=== PATIENT | female | born 1960 | race Caucasian/White ===

== ENCOUNTER → 2020-07-01 09:47 | Outpatient (BNVA) | payer BC, SELFPAY | PROVIDERS: PCP Internal Medicine; Visit Provider Hospitalist ==

== ENCOUNTER → 2020-08-05 09:53 | Outpatient (BNVA) | payer BC, SELFPAY | PROVIDERS: PCP Internal Medicine; Visit Provider Internal Medicine Cardiovascular Disease ==

== ENCOUNTER → 2020-08-19 07:42 | Outpatient (REF) | payer BC, SELFPAY ==
--- NOTE | ~2020-08-19 | NM_ITS ---
Myocardial perfusion study Indication: Shortness of breath and chest pain to evaluate for myocardial ischemia Technique: The patient was brought in for a Lexiscan perfusion study on 08/19/2020. Patient performed low-level exercise and was injected 0.4 mg of Lexiscan intravenously. Within a minute of injection, 35 mCi of sestamibi was given intravenously. Images were obtained using the SPECT gamma camera interlaced with the gating device. Images were obtained in supine position. Resting perfusion study was performed on 08/22/2020. Patient was administered 35 mCi of sestamibi intravenously at rest. Images were then obtained in supine position. Images obtained with and without CT attenuation. Total DLP 97 mGy-cm. Images were processed with the software and compared side to side in short axis, horizontal long axis and vertical long axis views. Findings: The stress perfusion study showed non attenuated images show minimal thinning and reduction uptake in the distal anterior and anterolateral wall of the LV myocardium. Remainder of the LV myocardium is normally perfused. Attenuation corrected images show normal uptake of radiotracer in all segments of LV myocardium. The gated study shows normal LV systolic function with calculated LVEF of 66%. LV cavity is normal in size. The gated study shows normal systolic wall thickening and contraction of segments. Resting study shows no change in perfusion pattern compared to stress perfusion study. Gating at rest reveals normal systolic wall motion with visually estimated ejection fraction at greater than 60%. The findings are consistent with normal myocardial perfusion. NM/NM tin perf SPECT rest & str Impression: 1. Myocardial perfusion imaging study shows normal myocardial perfusion 2. Gated LVEF is 66% 3. Transient ischemic dilatation not present Is nondiagnostic for ischemia
--- NOTE | 2020-08-19 07:49 | CA_ITS ---
Acquisition Time: 2020-08-19 08:15:25 Total Exercise Time: 00:02:00 Test Indications: Abnormal ECG Medications: Protocol: LEXISCAN Max HR: 091 BPM 56% of Pred: 160 BPM Max BP: 120/080 mmHG Max Work Load: 1.0 METS Pharmacological stress test using Lexiscan while sitting. Pt c/o chest pressure 10/10 after injection. Aminophyline used 75 mg IV to reversed the sx. EKG with no arrhythmias, non-diagnostic for ischemia. Nuclear images to follow. Normotensive response to test. Test reviewed with Dr. Monterroso. Referred By: Michael Zuñiga Overread By: Gillian Virk NP
== END ==
LOC: HO.CARD 07:42
PROVIDERS: Visit Provider Internal Medicine Cardiovascular Disease
DX: R07.89 Other chest pain (principal); R00.2 Palpitations; J44.9 Chronic obstructive pulmonary disease, unspecified; J96.10 Chronic respiratory failure, unspecified whether with hypoxia or hypercapnia; J98.4 Other disorders of lung
CPT/HCPCS: 78452; 93017; A9500; J0280; J2785

== ENCOUNTER → 2020-11-11 11:22 | Outpatient (BNVA) | payer OTHER, SELFPAY | PROVIDERS: PCP Internal Medicine; Visit Provider Hospitalist ==

== ENCOUNTER → 2020-11-30 07:25 | Outpatient (REF) | payer OTHER, SELFPAY ==
--- NOTE | 2020-11-30 07:28 | CA_ITS ---
Transthoracic Echocardiogram Patient (Last, First, Middle): Tricia Golden, Gender: Female Date of : 1960 Age: 60 Procedure Date: 11/30/2020 Procedure Type: Transthoracic Echocardiogram Location: OP Height: 157.48 cm Weight: 86.18 kg BSA: 1.87 m2 Heart Rate: bpm BP: 138 / 70 mmHg [employer] Technician: Referring MD: Michael Zuñiga MD Symptoms: R06.02 - Shortness of breath Study Quality: Fair ECG Rhythm: Sinus Conclusions: - The left ventricular systolic function is normal. The visually estimated ejection fraction is between 60-65%. - There is moderately increased left ventricular wall thickness. - No obvious valvular pathology seen on this study. - Top normal ascending aortic size (3.8cm). Findings Left Ventricle Normal left ventricular cavity size. There is moderately increased left ventricular wall thickness. The left ventricular systolic function is normal. The visually estimated ejection fraction is between 60-65%. There is no evidence of regional wall motion abnormalities. E/E prime ratio is between 8 and 15 consistent with indeterminate filling pressures. Evidence suggests grade I (mild) diastolic dysfunction. Right Ventricle Normal right ventricular cavity size and systolic function. Atria The left atrium is mildly dilated. The right atrium is normal in size. Aortic Valve The aortic valve was not well visualized. There is no aortic valve stenosis. There is no aortic valve regurgitation. Mitral Valve The mitral valve appears normal. There is trace mitral valve regurgitation. There is no mitral valve stenosis. Pulmonic Valve The pulmonic valve was not well visualized. Tricuspid Valve Normal tricuspid valve structure. There is trace tricuspid valve regurgitation. The pulmonary artery systolic pressure is normal. Great Vessels Top normal ascending aortic size (3.8cm). Venous The inferior vena cava is normal in size and collapses greater than 50% with inspiration. Pericardium/Pleural There is no evidence of pericardial effusion. Prior Study Comparison No prior study available for comparison. Recommendations, Care & Conclusions No obvious valvular pathology seen on this study. Measurements 2D Linear Measurements IVSd: 1.36 0.6-0.9/0.6-1.0 cm LVIDd: 4.09 3.9-5.3/4.2-5.9 cm LVIDs: 2.71 2.0-3.6 cm LVPWd: 1.31 0.7-1.1 cm Ao Root: 2.75 2.1-3.5 cm LV Mass: 249.63 67-162/88-224 g LVOT Diam: 2.02 3.0+(-)1.3 cm Mitral Valve MV Pk E: 0.51 MV PK A: 0.78 MV Decel Time: 293.64 E/A: 0.65 E'Lateral: 0.04 E'Medial: 0.04 Decel Bureau: 1.73 Aortic Valve AoV Pk Graeme: 1.57 AoV Mn Graeme: 0.93 AoV VTI: 0.30 AoV Pk Grad: 9.92 Aov Mn Grad: 4.38 LVOT LVOT Pk Graeme: 1.10 LVOT Mn Graeme: 0.67 LVOT VTI: 0.25 LVOT Pk Grad: 4.81 LVOT Mn Grad: 2.22 LVOT Diam: 2.02 LVOT Area: 3.20 Diastolic Function MV Pk E: 0.51 MV Pk A: 0.78 E/A: 0.65 E'Medial: 0.04 E' Laterial: 0.04 Tricuspid Valve TR Pk Graeme: 2.02 TR Pk Grad: 16.40 RA Press: 3.00 RVSP: 19.00 Great Vessels Aorta Ao Root-2D: 2.75 2.0-3.7 cm Ao Asc: 3.76 2.1-3.4 cm Pulmonary Valve PV Pk Graeme: 1.19 Peak PV Grad: 5.68 Updated in Other Vendor System with Status of Final Oul Monterroso MD electronically signed on 12/01/2020 12:06:00 PM with status of Final
== END ==
LOC: HO.CARD 07:25
PROVIDERS: Visit Provider Internal Medicine Cardiovascular Disease
DX: R07.89 Other chest pain (principal); R00.2 Palpitations; J44.9 Chronic obstructive pulmonary disease, unspecified; J96.10 Chronic respiratory failure, unspecified whether with hypoxia or hypercapnia; J98.4 Other disorders of lung
CPT/HCPCS: 93306

== ENCOUNTER 2020-12-05 10:53 | Outpatient (REF) | payer OTHER, SELFPAY ==
--- NOTE | 2020-12-05 17:09 | PFT_ITS ---
FLOWS: FEV1 of 82% of predicted at 1.87 L. FVC 76% of predicted at 2.25 L. FEV1 to FVC ratio of 0.83. No bronchodilator response except in small to medium airways. LUNG VOLUMES: Total lung capacity 80% of predicted at 3.70 L. Residual volume 66% of predicted at 1.23 L. Slow vital capacity 89% of predicted at 2.47 L. Expiratory reserve volume 29% of predicted at 0.22 L. Diffusion capacity is mildly decreased. IMPRESSION: No obstructive and borderline restrictive ventilatory defect. No bronchodilator response except in small to medium airways. Decreased expiratory reserve volume suggests extrathoracic restriction likely secondary to abdominal obesity. Decreased diffusion capacity suggests emphysema. MD ELVIN Coello/MODL / [id number]
== END 2020-12-05 10:54 | disposition home or self-care (01) ==
LOC: HO.RESP 10:53
PROVIDERS: PCP Internal Medicine; Visit Provider Hospitalist
DX: J96.11 Chronic respiratory failure with hypoxia (principal); J98.4 Other disorders of lung; J44.9 Chronic obstructive pulmonary disease, unspecified
CPT/HCPCS: 94060; 94727; 94729

== ENCOUNTER → 2020-12-22 13:27 | Outpatient (BNVA) | payer OTHER, SELFPAY | PROVIDERS: PCP Internal Medicine; Visit Provider Hospitalist ==

== ENCOUNTER → 2021-01-17 10:22 | Outpatient (BNVA) | payer OTHER, SELFPAY | PROVIDERS: PCP Internal Medicine; Visit Provider Internal Medicine Cardiovascular Disease ==

== ENCOUNTER 2021-01-24 15:04 | Outpatient (REF) | payer OTHER, SELFPAY ==
[2021-01-24 16:31] VITALS: O2SAT 94
[2021-01-24 16:44] LABS: MANUAL DIFF FLAG NO
[2021-01-24 16:47] LABS: Basophils Absolute Auto 0.1 X10*3/uL (0.0-0.2); Basophils Percent Auto 0.5 % (0-2); Eosinophils Absolute Auto 0.3 X10*3/uL (0.0-0.4); Eosinophils Percent Auto 3.2 % (0-4); Hematocrit 41.2 % (37-47); Hemoglobin 13.8 g/dl (12.0-16.0); Imm Gran Abs Auto 0.05 X10*3/uL (0.00-0.03); Imm Gran Pct Auto 0.5 % (0.0-0.4); Lymphocytes Percent Auto 19.7 % (20-40); Mean Corpuscular HGB Conc 33.5 g/dl (31.0-35.0); Mean Corpuscular Hemoglobin 29.6 pg (27.0-33.0); Mean Corpuscular Volume 88.2 fL (80-98); Mean Platelet Volume 9.3 fL (9.4-12.3); Monocytes Absolute Auto 0.8 X10*3/uL (0.1-1.2); Monocytes Percent Auto 7.7 % (2-11); Neutrophils Absolute Auto 6.9 X10*3/uL (2.0-8.3); Neutrophils Percent Auto 68.4 % (45-73); Platelet Count 177 X10*3/uL (160-400); Red Blood Count 4.67 X10*6/uL (4.20-5.50); White Blood Count 10.1 X10*3/uL (4.8-10.8)
[2021-01-24 16:51] LABS: ABG Refer to POC result
[2021-01-24 17:13] LABS: D Dimer < 200 NG/ML
[2021-01-24 17:15] LABS: Anion Gap 11 (12-20); Blood Urea Nitrogen 11 mg/dL (9-16); Carbon Dioxide 34 mmol/L (22-29); Chloride 98 mmol/L (96-108); Estimated Glomerular Filt Rate > 60; Glucose Random 123 mg/dL (60-115); Potassium 4.1 mmol/L (3.3-5.1); Sodium 139 mmol/L (135-145)
[2021-01-24 17:16] LABS: ABG pCO2 40 mmHg (32-45); ABG pH 7.44 (7.35-7.45)
[2021-01-24 17:17] LABS: B Type Natriuretic Peptide 88 pg/mL (<100); Troponin-I High Sensitivity 4.9 ng/L (<3.5-17.0)
[2021-01-24 17:17] LABS: ABG HCO3 27 mmol/L (22-26); ABG pO2 68 mmHg (83-108)
[2021-01-24 17:37] LABS: TSH reflex Free T4 0.35 uIU/mL (0.32-4.0)
[2021-01-24 17:47] LABS: Erythrocyte Sedimentation Rate 7 MM/HR (0-20)
[2021-01-29 02:36] LABS: Angiotensin Converting Enzyme 27 U/L (9-67)
== END 2021-01-24 15:05 | disposition home or self-care (01) ==
LOC: HO.LAB 15:04
PROVIDERS: PCP Internal Medicine; Visit Provider Hospitalist
DX: G47.33 Obstructive sleep apnea (adult) (pediatric) (principal); D86.9 Sarcoidosis, unspecified; R91.8 Other nonspecific abnormal finding of lung field; J96.11 Chronic respiratory failure with hypoxia; J44.9 Chronic obstructive pulmonary disease, unspecified; J98.4 Other disorders of lung
CPT/HCPCS: 36415; 36600; 80048; 82164; 82803; 83880; 84443; 84484; 85025; 85379; 85652

== ENCOUNTER → 2021-02-21 10:00 | Outpatient (BNVA) | payer OTHER, SELFPAY | PROVIDERS: PCP Internal Medicine; Visit Provider Hospitalist | DX: D86.9 Sarcoidosis, unspecified (principal); R91.8 Other nonspecific abnormal finding of lung field; J44.9 Chronic obstructive pulmonary disease, unspecified ==

== ENCOUNTER → 2021-07-06 14:12 | Outpatient (BNVA) | payer BC, SELFPAY | PROVIDERS: PCP Internal Medicine; Visit Provider Hospitalist | DX: J98.4 Other disorders of lung (principal); G47.33 Obstructive sleep apnea (adult) (pediatric); D86.9 Sarcoidosis, unspecified; R91.8 Other nonspecific abnormal finding of lung field; R06.02 Shortness of breath; E66.2 Morbid (severe) obesity with alveolar hypoventilation; J96.11 Chronic respiratory failure with hypoxia; J44.9 Chronic obstructive pulmonary disease, unspecified; Z79.899 Other long term (current) drug therapy | CPT/HCPCS: 94618 ==

== ENCOUNTER → 2021-08-09 20:38 | Outpatient (REF) | payer BC, SELFPAY | LOC: HO.SL 20:38 | PROVIDERS: PCP Internal Medicine; Visit Provider Hospitalist | DX: G47.33 Obstructive sleep apnea (adult) (pediatric) (principal) | CPT/HCPCS: 95810 ==

== ENCOUNTER → 2021-09-07 13:13 | Outpatient (BNVA) | payer BC, SELFPAY | PROVIDERS: PCP Internal Medicine; Visit Provider Hospitalist | DX: Z13.89 Encounter for screening for other disorder (principal) ==

== ENCOUNTER → 2021-10-06 10:03 | Outpatient (BNVA) | payer BC, SELFPAY | PROVIDERS: PCP Internal Medicine; Visit Provider Hospitalist | DX: G47.33 Obstructive sleep apnea (adult) (pediatric) (principal) ==

== ENCOUNTER → 2022-01-16 10:04 | Outpatient (BNVA) | payer BC, SELFPAY | PROVIDERS: PCP Internal Medicine; Visit Provider Hospitalist | DX: J44.9 Chronic obstructive pulmonary disease, unspecified (principal); D86.9 Sarcoidosis, unspecified; R91.8 Other nonspecific abnormal finding of lung field; E66.2 Morbid (severe) obesity with alveolar hypoventilation; J96.11 Chronic respiratory failure with hypoxia; J98.4 Other disorders of lung; F43.20 Adjustment disorder, unspecified | CPT/HCPCS: 94618 ==

== ENCOUNTER → 2022-02-02 10:35 | Outpatient (REF) | payer OTHER, SELFPAY ==
--- NOTE | 2022-02-02 10:40 | CA_ITS ---
Transthoracic Echocardiogram Patient (Last, First, Middle): Tricia Golden, Gender: Female Date of : 1960 Age: 61 Procedure Date: 02/02/2022 Procedure Type: Transthoracic Echocardiogram Location: OP Height: 157.48 cm Weight: 86.18 kg BSA: 1.87 m2 Heart Rate: bpm BP: 128 / 82 mmHg Radio Operator Ground: Referring MD: Michael Zuñiga MD Symptoms: I51.7 - Cardiomegaly Study Quality: Fair ECG Rhythm: Sinus Conclusions: - Normal left ventricular size and systolic function. There is severely increased left ventricular wall thickness. The visually estimated ejection fraction is between 60-65%. - Normal right ventricular cavity size and systolic function. - There is mild dilatation of the ascending aorta measuring 3.70 cm. Findings Left Ventricle Normal left ventricular size and systolic function. There is severely increased left ventricular wall thickness. The visually estimated ejection fraction is between 60-65%. There is no evidence of regional wall motion abnormalities. Abnormal diastolic function is noted. Spectral Doppler is indicative of an impaired relaxation filling pattern. E/E prime ratio is between 8 and 15 consistent with indeterminate filling pressures. Right Ventricle Normal right ventricular cavity size and systolic function. Atria The left atrium is mildly dilated. Aortic Valve Normal aortic valve structure and function. There is no aortic valve stenosis. There is no aortic valve regurgitation. Mitral Valve Normal mitral valve structure and function. There is moderate mitral annular calcification. There is trace mitral valve regurgitation. There is no mitral valve stenosis. Pulmonic Valve Normal pulmonic valve structure and function. There is trace pulmonic valve regurgitation. Tricuspid Valve Normal tricuspid valve structure and function. There is trace tricuspid valve regurgitation. Tricuspid regurgitation envelope is inadequate for calculation of right ventricular systolic pressure. Normal right atrial pressure. Great Vessels There is mild dilatation of the ascending aorta measuring 3.70 cm. The visualized portions of the pulmonary artery and branches are normal. Venous The inferior vena cava is normal in size and collapses greater than 50% with inspiration. Pericardium/Pleural There is no evidence of pericardial effusion. Prior Study Comparison Significant changes compared to prior study. Severely increased wall thickness. Measurements 2D Linear Measurements IVSd: 1.49 0.6-0.9/0.6-1.0 cm LVIDd: 2.73 3.9-5.3/4.2-5.9 cm LVIDd Index: 1.46 2.4-3.2/2.2-3.1 cm/m2 LVIDs: 1.77 2.0-3.6 cm LVPWd: 1.43 0.7-1.1 cm Ao Root: 3.10 2.1-3.5 cm LA Diam: 4.30 2.7-3.8/3.0-4.0 cm LAIDs Index: 2.30 1.5-2.3 cm/m2 LV Mass: 166.42 67-162/88-224 g LV Mass Index: 88.99 43-95/49-115 g/m2 LVOT Diam: 2.20 3.0+(-)1.3 cm Mitral Valve MV Pk E: 0.56 MV PK A: 0.93 MV Decel Time: 216.00 E/A: 0.60 E'Lateral: 4.24 E'Medial: 3.92 E/E' Med: 14.20 E/E' Lat: 13.10 PHT: 63.00 MVA PHT: 3.49 Decel Dimmit: 2.57 Aortic Valve AoV Pk Graeme: 1.74 AoV Mn Graeme: 1.00 AoV VTI: 0.38 AoV Pk Grad: 12.00 Aov Mn Grad: 5.00 LUIS Cont.VTI: 2.66 LVOT LVOT Pk Graeme: 1.23 LVOT Mn Graeme: 0.79 LVOT VTI: 0.27 LVOT Pk Grad: 6.00 LVOT Mn Grad: 3.00 LVOT Diam: 2.20 LVOT Area: 3.80 Diastolic Function MV Pk E: 0.56 MV Pk A: 0.93 E/A: 0.60 E'Medial: 3.92 E/E' Med: 14.20 E' Laterial: 4.24 E/E' Lat: 13.10 Right Ventricle TAPSE (mm): 23.00 TVS' Graeme: 15.00 Tricuspid Valve TR Pk Graeme: 1.51 TR Pk Grad: 9.00 Great Vessels Aorta Ao Root-2D: 3.10 2.0-3.7 cm Ao Asc: 3.70 2.1-3.4 cm Pulmonary Valve PV Pk Graeme: 1.40 Peak PV Grad: 8.00 Updated in Other Vendor System with Status of Final Robin Curiel MD electronically signed on 02/03/2022 8:00:26 PM with status of Final
== END ==
LOC: HO.CARD 10:35
PROVIDERS: PCP Internal Medicine; Visit Provider Internal Medicine Cardiovascular Disease
DX: I51.7 Cardiomegaly (principal)
CPT/HCPCS: 93306

== ENCOUNTER → 2022-02-21 13:54 | Outpatient (BNVA) | payer OTHER, SELFPAY | PROVIDERS: PCP Internal Medicine; Visit Provider Internal Medicine Cardiovascular Disease | DX: I51.7 Cardiomegaly (principal) | CPT/HCPCS: 93005 ==

== ENCOUNTER → 2022-10-15 12:43 | Outpatient (BNVA) | payer OTHER, SELFPAY | PROVIDERS: PCP Internal Medicine; Visit Provider Hospitalist | DX: J96.11 Chronic respiratory failure with hypoxia (principal); J98.4 Other disorders of lung; E66.2 Morbid (severe) obesity with alveolar hypoventilation; D86.9 Sarcoidosis, unspecified; R91.8 Other nonspecific abnormal finding of lung field; I10 Essential (primary) hypertension; Z68.35 Body mass index [BMI] 35.0-35.9, adult; F40.240 Claustrophobia; Z99.81 Dependence on supplemental oxygen; Z23 Encounter for immunization | CPT/HCPCS: 90471; 90677 ==

== ENCOUNTER 2023-06-13 11:06 | Outpatient (AMB) | payer BC, SELFPAY ==
[2023-06-13 11:09] VITALS: BP 142/72; PULSE 61; O2SAT 99
--- NOTE | 2023-06-13 11:09 | MHC.OFFVIS ---
Intake Vital Signs 06/13/23 11:09 Height 5 ft 2 in BP 142/72 H Blood Pressure Location Lt brachial Position Sitting Pulse 61 Pulse Source Pulse Oximeter Pulse Oximetry (%) 99 Oxygen Delivery Method Room Air Oxygen Flow Rate 3 Intake Visit Reasons: COPD Allergies MIREILLE Inhibitors Allergy (Mild, Uncoded 06/13/23 11:14) Difficulty Breathing Amoxicillin Allergy (Mild, Uncoded 06/13/23 11:14) Difficulty Breathing Iodine Allergy (Mild, Uncoded 06/13/23 11:14) Rash/Hives Lisinopril Allergy (Mild, Uncoded 06/13/23 11:14) Difficulty Breathing Morphine Allergy (Mild, Uncoded 06/13/23 11:14) Bad Sleep Apnea Shellfish Allergy (Mild, Uncoded 06/13/23 11:14) Vomiting and Hives Sulfa Drugs Allergy (Mild, Uncoded 06/13/23 11:14) Rash/Hives HPI HPI Comments History of Present Illness Details The patient is a 62-year-old woman known complex sleep apnea in addition to uncontrolled hypertension. She has failed CPAP in the past. She has been having hard time controlling her blood pressure at this time. She does use oxygen at nighttime. The oxygen therapy has been affecting beneficial. However, for the last 8 months or so she has been developing progressive shortness of breath. She gets short of breath even minimal activity. Moderate severity. Does get better with rest. She has also noticed that she has had increased weight gain. She has also feels swollen. She does complains of chest tightness. Denies any wheezing or coughing at this time. She is overly tired. She is staying busy doing work and not been able to get adequate sleep. She is also concerned that recently her got laid off. She does have a history of pulmonary nodules. The suspicion is that she had also enlarged salivary glands. We were evaluating her for potential diagnosis of sarcoidosis. However, the workup was not completed. She also had a CT scan of the chest that was personally reviewed by me. She has numerous pulmonary nodules although small. Some indeed a calcified consistent with granulomas. Indeed there may be evidence of sarcoidosis but no evidence of any end-organ disease or need for therapy at this time. We talked about the importance of her sleep apnea. She does have a complex sleep apnea. She will have a sleep study coming up on Saturday. She does have significant sleep apnea. She failed CPAP in the past and she is claustrophobic and is get about starting CPAP at this time. She thinks that the CPAP will make her worse altogether. Therefore the only other option is for her to consider an oral appliance. 09/07/2021 the patient has a telephone visit today. She has become significantly worse. she has been using the oxygen now continue sleep because of worsening shortness of breath. Usually at 2 L. she also has significant daytime drowsiness with an Lambert score of 16/24. The patient did have a split study recently which we personally reviewed. The patient does have severe sleep apnea. She was titrated on CPAP which she did have a hard time. The recommendation was for her to start CPAP therapy at a low pressure in order for her to be able to tolerated. In addition to that she was very hypoxemic and she will need oxygen as well along with her APAP therapy. I did reach out to the local DME company, [employer]. the patient needs to be started on APAP ONI. She also needs a lot of encouragement and guidance. She is reluctant to use a sleep aid because of her severe disease and bad outcomes in the past. But, she may be able to take something that will not affect her respiratory drive that will help her tolerate the PAP therapy. In the meantime she continues with current respiratory therapy. She also has been on diuretics. 10/06/2021 the patient is here for a pulmonary follow-up visit. We did review her severe split study during the last visit and I did request an urgent APAP. she has not received her machine as his yet. I did call the [employer] a [employer] company and they did respond to me saying that they will be setting her up today or Next week. The patient will start using the machine. She will also bring it in to the next visit. I did provide her with a prescription of gabapentin. She has been concern of taking any medications because of her significant sleep apnea and previous occurrences when she took any sleep medication where she resulted in respiratory failure. I did reassure the patient that the gabapentin is a small does and should not create such a significant impact on her respiratory drive if anything. Still she will bring her machine and we can just make sure she is using it properly and she can try the medication while she is with this during that visit. in the meantime I did request a consultation with a sleep specialist at [facility]. The patient still waiting to hear back from that visit. She continues use her oxygen with good effect. The patient continues on her diuretics. 12/13/2021 the patient is here for a pulmonary follow-up visit. Overall the patient has multiple ailments. Recently she was diagnosed with diabetes and she is having hard time with that. She is waiting for non-insulin injectable medicine hopeful that will help her with her weight and also with her sugars. In the meantime she did start the CPAP. The CPAP therapy has been affecting beneficial she she seems to be tolerating after we adjusted the pressure is a little bit more. this is a significant improvement from her baseline. I am hopeful that she can continue using it nightly. I will request that she brings her CPAP into the next visit so we can download the data and further adjust the machine accordingly. In regards to the oxygen she continues use the oxygen at 3 L continues with activity and 2 L at rest. The therapy has been affecting beneficial. Her swelling has improved dramatically. I am hopeful that if she continues improving then we can have her try conserving device such she does not have to carries the larger oxygen canister. the patient continues to have shortness of breath and cough productive in nature. She is not able to take prednisone due to her other comorbidities. Daliresp will be an option for her. 01/16/2022 the patient is here for pulmonary follow-up visit. Overall the patient appears to be doing a little better. She still dealing with the elevated blood sugars. She was recently also referred to Nephrology for micro albuminuria. Renal function still normal. She is working closely with Nephrology. She has lost some weight which is reassuring. The patient also has been trying to use her CPAP. She has been using it not every day. She understands that she needs to use it more. She is going to start using during the daytime as well. The patient is reluctant to use a sleep aid because she is concerned that she is not going to wake up. Although I do believe a mild sleep aid may help her tolerate her CPAP better. During the visit we did undergo a 6 minutes walk test. The patient was able to maintain a pulse ox of 96% on 3 L pulse which is significantly better than she was before. The patient has significant elements she has a hard time caring her oxygen tanks. They do not provide a portability outside of the home. The patient needs a battery powered portable oxygen concentrator. I will request 1 from her [employer] a [employer] company. 10/15/2022 The patient is here for a pulmonary follow up visit. She is no longer using the CPAP. She has tried and failed APAP multiple times. She was not a candidate for a hypoglossal nerve stimulator, and did not respond to Oral mandibular device. We briefly spoke about tracheostomy, but, I honestly feel that this will result in a worsening quality of life. If her condition were to worsen then we can further discuss that option. She does use the oxygen 17/12. She went back to the continuous oxygen since the POC was not enough. She developed severe abdominal pain and admitted to [facility] briefly. She had a CT abdomen which I personally reviewed the lung cuts. It appears that se has new pulmonary nodules suggestive of bronchiolitis. Likely related to a viral syndrome. No evidence of pneumonia nor ILD. Clinically the patient feels better. She is not looking to have additional studies at this time. As long as she is not worsening we can get a repeat CT chest in 8-12 months. 06/13/2023 the patient is here for a pulmonary follow-up visit. Recently she did have COVID back actually the end of April. She then tested positive again. She had hard time getting rid of it. She finally was able to clear the COVID but he resulted in significant sinusitis. She went to her primary care doctor and she was given prednisone and also antibiotics. Although it only partially treated. Will go ahead and give her another course of antibiotics. Will hold the prednisone specially since she is already cushingoid. The patient also has been using the oxygen with good effect. She is working on weight loss. The patient still not using any APAP therapy. We did talk about other modalities such as a elastic mandibular device that may provides minimal relief but will provide some relief to treat her underlying sleep apnea. At this point any intervention will be helpful. The patient unfortunately did have an MRI done when she went to [facility] and she was found to have a new chronic lacunar infarct. This is not her 1st stroke. She understands that not using her CPAP, untreated sleep apnea can result in increased cerebrovascular disease. The patient does have significant chronic fatigue after having the COVID. She does not feel the same as she did prior to the COVID. Therefore, she will be a good candidate for Provigil that she can use a small dose in the morning to see if this provides better sleep-wake cycle. [facility] Medical History Adjustment disorder Asthma-COPD overlap syndrome Chronic respiratory failure Chronic restrictive lung disease Left ventricular hypertrophy ABNER (obstructive sleep apnea) Pickwickian syndrome Pulmonary nodules Sarcoidosis Surgical History Hx of cholecystectomy Hx of hysterectomy Family History Father CVD (cardiovascular disease) Mother CVD (cardiovascular disease) Social History Patient Tobacco Use Status: Never used Tobacco Review of Systems Const Denies chills, Reports daytime sleepiness, Denies difficulty sleeping, Reports fatigue, Denies fever(s), Denies frequent falls, Reports headache(s), Reports snoring, Reports stops breathing during sleep, Denies weakness, Denies weight gain and Reports weight loss ENT Denies dizziness, Reports headache(s), Reports nasal congestion, Reports nasal discharge, Reports nasal obstruction, Reports sinus pain and Reports sinus pressure Card Denies chest pain, Denies leg edema, Denies lightheadedness, Denies palpitations, Denies dyspnea, Reports dyspnea on exertion, Reports orthopnea and Denies other (loss of consciousness) Resp Denies cough, Denies dyspnea, Reports dyspnea on exertion and Reports snoring GI Denies hematochezia and Denies change in stool character Musc Denies abnormal gait, Denies muscle weakness, Denies numbness, Denies radiating pain into limb and Denies tingling Neuro Denies abnormal gait, Denies dizziness, Denies frequent falls, Reports headache(s), Denies numbness, Denies tingling and Denies weakness Endo Reports fatigue and Denies palpitations Physical Exam Vital Signs: Last Vital Signs Pulse 61 06/13/23 11:09 BP 142/72 H 06/13/23 11:09 Pulse Ox 99 06/13/23 11:09 Oxygen Delivery Method Room Air 06/13/23 11:09 Oxygen Flow Rate 3 06/13/23 11:09 Const General: alert Orientation/consciousness: patient oriented x3 HEENT General nose exam: Abnormal external nose present and Nasal discharge present Neck Neck: Yes supple Chest Chest palpation & inspection: normal inspection of the chest Resp Effort & Inspection: normal respiratory effort Auscultation: no wheezes and diminished lung sounds Cardio Rate: regular rate Rhythm: regular rhythm Heart sounds: S1 normal heart sound present and S2 normal heart sound present GI Palpation (GI): Soft to palpation and nontender Auscultation: normal bowel sounds Skin General skin exam: rashes and/or lesions noted Neuro General: patient oriented x3 Extrem General: No clubbing, No cyanosis and Yes edema Psych Appearance: well kempt Affect: Sad affect present Assessment & Plan Assessment & Plan (1) ABNER (obstructive sleep apnea): Comment: I am very concerned with the degree of sleep apnea and her significant symptoms. There is significant physiological stress and the patient is at risk for cardiovascular and cerebrovascular complications. The patient understands that we have limited options at this time. Tracheostomy is something she would like to avoid. She is not a candidate for the hypoglossal nerve stimulator as per the ENT evaluation. Other surgical interventions will not be effective. Code(s): G47.33 - Obstructive sleep apnea (adult) (pediatric) (2) Sarcoidosis: Comment: currently not active Code(s): D86.9 - Sarcoidosis, unspecified (3) Pulmonary nodules: Code(s): R91.8 - Other nonspecific abnormal finding of lung field (4) SOB (shortness of breath) on exertion: Code(s): R06.02 - Shortness of breath (5) Pickwickian syndrome: Code(s): E66.2 - Morbid (severe) obesity with alveolar hypoventilation (6) Chronic respiratory failure: Comment: RUN: 10/08/21 4742 PAGE 1 [facility] [address] [place] [id number] City Controller: Valdimir Torre M.D. Specimen Inquiry Name: Tricia Golden Age/Sex: 60/F : 1960 Unit#: [id number] Attend Dr: Campos Jackson MD Re01/24/21 Status: DEP REF Location: .LAB Disch: SPEC : [id number] DEON: 01/24/21 STATUS: COMP REQ : [id number] RECD: 01/24/[address]: Campos Jackson MD COMP: 01/24/21 ENTERED: 01/24/[address]: JORGE LIUS GALARZA MD ORDERED: ABG - POC COMMENTS: TESTED ON [id number] BY [id number] Test Result Flag Reference Site ABG pH 7.44 7.35-7.45 ABG pCO2 40 32-45 mmHg ABG pO2 68 L 83-108 mmHg ABG HCO3- 27 H 22-26 mmol/L ABG O2 % Sat. 92.0 % Code(s): J96.10 - Chronic respiratory failure, unspecified whether with hypoxia or hypercapnia Qualifiers: Respiratory failure complication: hypoxia Qualified Code(s): J96.11 - Chronic respiratory failure with hypoxia (7) Chronic restrictive lung disease: Code(s): J98.4 - Other disorders of lung (8) Asthma-COPD overlap syndrome: Code(s): J44.9 - Chronic obstructive pulmonary disease, unspecified (9) Sinusitis: Code(s): J32.9 - Chronic sinusitis, unspecified Qualifiers: Sinusitis location: unspecified location Chronicity: subacute Qualified Code(s): J01.90 - Acute sinusitis, unspecified Plan Continue Breztri NAM as needed start Doxycycline oxygen supplementation 2-3L with activity and sleep. recommend oral mandibular device from dentist diuresis as tolerated start Provigil continue Daliresp follow-up in 4-6 months Medications: New doxycycline monohydrate 100 mg PO BID 14 days 28 tabs 0RF modafinil (Provigil) 100 mg PO DAILY 30 days 30 tabs 3RF Refilled hoccyffvjb-xetmanwl-eotlofolqf 160-9-4.8 mcg/actuation (Breztri Aerosphere) 2 inhalations inhalation BID 30 days 10.7 grams 11RF albuterol sulfate 90 mcg/actuation 2 inhalations inhalation Q6H 30 days PRN 18 grams 12RF shortness of breath or wheezing J44.9 - Chronic obstructive pulmonary disease, unspecified Coding Level of Care Code Est Pt Level 4 (94556) Diagnoses ABNER (obstructive sleep apnea) G47.33 Sarcoidosis D86.9 Pulmonary nodules R91.8 SOB (shortness of breath) on exertion R06.02 Pickwickian syndrome E66.2 Chronic respiratory failure with hypoxia J96.11 Respiratory failure complication: hypoxia Chronic restrictive lung disease J98.4 Asthma-COPD overlap syndrome J44.9 Subacute sinusitis, unspecified location J01.90 Sinusitis location: unspecified location Chronicity: subacute Time Spent (min) 17
== END 2023-06-13 11:40 | disposition home or self-care (01) ==
PROVIDERS: PCP Internal Medicine; Visit Provider Hospitalist
DX: G47.33 Obstructive sleep apnea (adult) (pediatric) (principal); D86.9 Sarcoidosis, unspecified; R91.8 Other nonspecific abnormal finding of lung field; R06.02 Shortness of breath; E66.2 Morbid (severe) obesity with alveolar hypoventilation; J96.11 Chronic respiratory failure with hypoxia; J98.4 Other disorders of lung; J44.9 Chronic obstructive pulmonary disease, unspecified; J01.90 Acute sinusitis, unspecified
CPT/HCPCS: 99214

== ENCOUNTER → 2023-06-13 11:06 | Outpatient (BNVA) | payer BC, SELFPAY | PROVIDERS: PCP Internal Medicine; Visit Provider Hospitalist | DX: G47.33 Obstructive sleep apnea (adult) (pediatric) (principal); J96.11 Chronic respiratory failure with hypoxia; J98.4 Other disorders of lung; J44.9 Chronic obstructive pulmonary disease, unspecified; J01.90 Acute sinusitis, unspecified; D86.9 Sarcoidosis, unspecified; R91.8 Other nonspecific abnormal finding of lung field; R06.02 Shortness of breath; E66.2 Morbid (severe) obesity with alveolar hypoventilation | CPT/HCPCS: 99212 ==

== ENCOUNTER 2023-10-23 11:08 | Outpatient (AMB) | payer BC, SELFPAY ==
--- NOTE | 2023-10-23 11:19 | A.OFFVIS_ITS ---
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 Required: No Allergies MIREILLE Inhibitors Allergy (Mild, Uncoded 10/23/23 11:23) Difficulty Breathing Amoxicillin Allergy (Mild, Uncoded 10/23/23 11:23) Difficulty Breathing Iodine Allergy (Mild, Uncoded 10/23/23 11:23) Rash/Hives Lisinopril Allergy (Mild, Uncoded 10/23/23 11:23) Difficulty Breathing Morphine Allergy (Mild, Uncoded 10/23/23 11:23) Bad Sleep Apnea Shellfish Allergy (Mild, Uncoded 10/23/23 11:23) Vomiting and Hives Sulfa Drugs Allergy (Mild, Uncoded 10/23/23 11:23) Rash/Hives HPI Comments Details: The patient is a 63-year-old woman known complex sleep apnea in addition to uncontrolled hypertension. She has failed CPAP in the past. She has been having hard time controlling her blood pressure at this time. She does use oxygen at nighttime. The oxygen therapy has been affecting beneficial. However, for the last 8 months or so she has been developing progressive shortness of breath. She gets short of breath even minimal activity. Moderate severity. Does get better with rest. She has also noticed that she has had increased weight gain. She has also feels swollen. She does complains of chest tightness. Denies any wheezing or coughing at this time. She is overly tired. She is staying busy doing work and not been able to get adequate sleep. She is also concerned that recently her got laid off. She does have a history of pulmonary nodules. The suspicion is that she had also enlarged salivary glands. We were evaluating her for potential diagnosis of sarcoidosis. However, the workup was not completed. She also had a CT scan of the chest that was personally reviewed by me. She has numerous pulmonary nodules although small. Some indeed a calcified consistent with granulomas. Indeed there may be evidence of sarcoidosis but no evidence of any end-organ disease or need for therapy at this time. We talked about the importance of her sleep apnea. She does have a complex sleep apnea. She will have a sleep study coming up on Saturday. She does have significant sleep apnea. She failed CPAP in the past and she is claustrophobic and is get about starting CPAP at this time. She thinks that the CPAP will make her worse altogether. Therefore the only other option is for her to consider an oral appliance. 09/07/2021 the patient has a telephone visit today. She has become si gnificantly worse. she has been using the oxygen now continue sleep because of worsening shortness of breath. Usually at 2 L. she also has significant daytime drowsiness with an Brea score of 16/24. The patient did have a split study recently which we personally reviewed. The patient does have severe sleep apnea. She was titrated on CPAP which she did have a hard time. The recommendation was for her to start CPAP therapy at a low pressure in order for her to be able to tolerated. In addition to that she was very hypoxemic and she will need oxygen as well along with her APAP therapy. I did reach out to the local DME company, [employer]. the patient needs to be started on APAP ONI. She also needs a lot of encouragement and guidance. She is reluctant to use a sleep aid because of her severe disease and bad outcomes in the past. But, she may be able to take something that will not affect her respiratory drive that will help her tolerate the PAP therapy. In the meantime she continues with current respiratory therapy. She also has been on diuretics. 10/06/2021 the patient is here for a pulmonary follow-up visit. We did review her severe split study during the last visit and I did request an urgent APAP. she has not received her machine as his yet. I did call the [employer] company and they did respond to me saying that they will be setting her up today or Next week. The patient will start using the machine. She will also bring it in to the next visit. I did provide her with a prescription of gabapentin. She has been concern of taking any medications because of her significant sleep apnea and previous occurrences when she took any sleep medication where she resulted in respiratory failure. I did reassure the patient that the gabapentin is a small does and should not create such a significant impact on her respiratory drive if anything. Still she will bring her machine and we can just make sure she is using it properly and she can try the medication while she is with this during that visit. in the meantime I did request a consultation with a sleep specialist at [facility]. The patient still waiting to hear back from that visit. She continues use her oxygen with good effect. The patient continues on her diuretics. 12/13/2021 the patient is here for a pulmonary follow-up visit. Overall the patient has multiple ailments. Recently she was diagnosed with diabetes and she is having hard time with that. She is waiting for non-insulin injectable medicine hopeful that will help her with her weight and also with her sugars. In the meantime she did start the CPAP. The CPAP therapy has been affecting beneficial she she seems to be tolerating after we adjusted the pressure is a little bit more. this is a significant improvement from her baseline. I am hopeful that she can continue using it nightly. I will request that she brings her CPAP into the next visit so we can download the data and further adjust the machine accordingly. In regards to the oxygen she continues use the oxygen at 3 L continues with activity and 2 L at rest. The therapy has been affecting beneficial. Her swelling has improved dramatically. I am hopeful that if she continues improving then we can have her try conserving device such she does not have to carries the larger oxygen canister. the patient continues to have shortness of breath and cough productive in nature. She is not able to take prednisone due to her other comorbidities. Daliresp will be an option for her. 01/16/2022 the patient is here for pulmonary follow-up visit. Overall the patient appears to be doing a little better. She still dealing with the elevated blood sugars. She was recently also referred to Nephrology for micro albuminuria. Renal function still normal. She is working closely with Nephrology. She has lost some weight which is reassuring. The patient also has been trying to use her CPAP. She has been using it not every day. She understands that she needs to use it more. She is going to start using during the daytime as well. The patient is reluctant to use a sleep aid because she is concerned that she is not going to wake up. Although I do believe a mild sleep aid may help her tolerate her CPAP better. During the visit we did undergo a 6 minutes walk test. The patient was able to maintain a pulse ox of 96% on 3 L p ulse which is significantly better than she was before. The patient has significant elements she has a hard time caring her oxygen tanks. They do not provide a portability outside of the home. The patient needs a battery powered portable oxygen concentrator. I will request 1 from her [employer] company. 10/15/2022 The patient is here for a pulmonary follow up visit. She is no longer using the CPAP. She has tried and failed APAP multiple times. She was not a candidate for a hypoglossal nerve stimulator, and did not respond to Oral mandibular device. We briefly spoke about tracheostomy, but, I honestly feel that this will result in a worsening quality of life. If her condition were to worsen then we can further discuss that option. She does use the oxygen 17/12. She went back to the continuous oxygen since the POC was not enough. She developed severe abdominal pain and admitted to [facility] briefly. She had a CT abdomen which I personally reviewed the lung cuts. It appears that se has new pulmonary nodules suggestive of bronchiolitis. Likely related to a viral syndrome. No evidence of pneumonia nor ILD. Clinically the patient feels better. She is not looking to have additional studies at this time. As long as she is not worsening we can get a repeat CT chest in 8-12 months. 06/13/2023 the patient is here for a pulmonary follow-up visit. Recently she did have COVID back actually the end of April. She then tested positive again. She had hard time getting rid of it. She finally was able to clear the COVID but he resulted in significant sinusitis. She went to her primary care doctor and she was given prednisone and also antibiotics. Although it only partially treated. Will go ahead and give her another course of antibiotics. Will hold the prednisone specially since she is already cushingoid. The patient also has been using the oxygen with good effect. She is working on weight loss. The patient still not using any APAP therapy. We did talk about other modalities such as a elastic mandibular device that may provides minimal relief but will provide some relief to treat her underlying sleep apnea. At this point any intervention will be helpful. The patient unfortunately did have an MRI done when she went to [facility] and she was found to have a new chronic lacunar infarct. This is not her 1st stroke. She understands that not using her CPAP, untreated sleep apnea can result in increased cerebrovascular disease. The patient does have significant chronic fatigue after having the COVID. She does not feel the same as she did prior to the COVID. Therefore, she will be a good candidate for Provigil that she can use a small dose in the morning to see if this provides better sleep-wake cycle. 10/23/2023 the patient is here for pulmonary follow-up visit. Overall the patient has been doing okay. She has been trying to work on weight loss. She has been using non-insulin injectables for diabetes although she has not seen significant weight loss. She is also using her oxygen with good effect. Lower extremity edema is okay. She has been working with elevated blood pressures. She did see Nephrology and her blood pressure is better controlled. Now she has been evaluated for other potential conditions which could be associated. Patient also continues with her underlying issues with sleep apnea. Although seems to be waking up okay. She never take the Provigil because she was concerned about the side effects. The patient does wake up at 06:00 o'clock in the morning is able to be effective during the daytime. So therefore this point seems like she does need Provigil. Still we talked about a mandibular device. The patient should be considering a oral mandibular device to help with snoring and help her with some degree of obstruction although we not cover or completely treat her sleep apnea and may partially helpful she will talk to the dentist soon about that. She continues to be on prednisone which is reassuring. We did look at a CT scan of the abdomen that she had back in 2022 demonstrating extensive reticular changes suggesting pulmonary fibrosis. Therefore will request a CT scan of the chest prior to her next visit. The patient should also be getting an echocardiogram specially with elevated blood pressure. And she has not had 1 by the time we see her next we will order 1. [facility] Medical History Adjustment disorder Asthma-COPD overlap syndrome Chronic respiratory failure Chronic restrictive lung disease Left ventricular hypertrophy ABNER (obstructive sleep apnea) Pickwickian syndrome Pulmonary nodules Sarcoidosis Surgical History Hx of cholecystectomy Hx of hysterectomy Family History Father CVD (cardiovascular disease) Mother CVD (cardiovascular disease) Social History Patient Tobacco Use Status: Never used Tobacco Review of Systems Const Denies chills, Reports daytime sleepiness, Denies difficulty sleeping, Reports fatigue, Denies fever(s), Denies frequent falls, Reports headache(s), Reports snoring, Reports stops breathing during sleep, Denies weakness, Denies weight gain and Reports weight loss ENT Denies dizziness, Reports headache(s), Reports nasal congestion, Reports nasal discharge, Reports nasal obstruction, Reports sinus pain and Reports sinus pressure Card Denies chest pain, Denies leg edema, Denies lightheadedness, Denies palpitations, Denies dyspnea, Reports dyspnea on exertion, Reports orthopnea and Denies other (loss of consciousness) Resp Denies cough, Denies dyspnea, Reports dyspnea on exertion and Reports snoring GI Denies hematochezia and Denies change in stool character Musc Denies abnormal gait, Denies muscle weakness, Denies numbness, Denies radiating pain into limb and Denies tingling Neuro Denies abnormal gait, Denies dizziness, Denies frequent falls, Reports headache(s), Denies numbness, Denies tingling and Denies weakness Endo Reports fatigue and Denies palpitations Physical Exam Vital Signs: Last Vital Signs Pulse 71 10/23/23 11:21 Pulse Ox 97 10/23/23 11:21 Oxygen Delivery Method Room Air 10/23/23 11:21 BMI result Body Mass Index 34.6 Const General: alert Orientation/consciousness: patient oriented x3 HEENT General nose exam: Abnormal external nose present and Nasal discharge present Neck Neck: Yes supple Chest Chest palpation & inspection: normal inspection of the chest Resp Effort & Inspection: normal respiratory effort Auscultation: no wheezes and diminished lung sounds Cardio Rate: regular rate Rhythm: regular rhythm Heart sounds: S1 normal heart sound present, S2 normal heart sound present and normal S1 and S2 GI Palpation (GI): Soft to palpation and nontender Auscultation: normal bowel sounds Skin General skin exam: rashes and/or lesions noted Neuro General: patient oriented x3 Extrem General: No clubbing, No cyanosis and No edema Psych Appearance: well kempt Affect: Sad affect present Assessment & Plan Assessment & Plan (1) ABNER (obstructive sleep apnea): Code(s): G47.33 - Obstructive sleep apnea (adult) (pediatric) Category: Medical (2) Sarcoidosis: Comment: currently not active Code(s): D86.9 - Sarcoidosis, unspecified Category: Medical (3) Pulmonary nodules: Code(s): R91.8 - Other nonspecific abnormal finding of lung field Category: Medical (4) SOB (shortness of breath) on exertion: Code(s): R06.02 - Shortness of breath Category: Medical (5) Pickwickian syndrome: Code(s): E66.2 - Morbid (severe) obesity with alveolar hypoventilation Category: Medical (6) Chronic respiratory failure: Comment: RUN: 10/08/212205 PAGE 1 [facility] [address] [place] [address] Customer Development Manager: Vladimir Torre M.D. Specimen Inquiry Name: Tricia Golden Age/Sex: 60/F : 1960 Unit#: [id number] Attend Dr: Campos Jackson MD Re01/24/21 Status: DEP REF Location: .LAB Disch: SPEC : [id number] DEON: 01/24/21 STATUS: COMP REQ : [id number] RECD: 01/24/[address]: Campos Jackson MD COMP: 01/24/21 ENTERED: 01/24/[address]: JORGE LUIS GALARZA MD ORDERED: ABG - POC COMMENTS: TESTED ON [id number] BY [id number] Test Result Flag Reference Site ABG pH 7.44 7.35-7.45 ABG pCO2 40 32-45 mmHg ABG pO2 68 L 83-108 mmHg ABG HCO3- 27 H 22-26 mmol/L ABG O2 % Sat. 92.0 % Code(s): J96.10 - Chronic respiratory failure, unspecified whether with hypoxia or hypercapnia Category: Medical Qualifiers: Respiratory failure complication: hypoxia Qualified Code(s): J96.11 - Chronic respiratory failure with hypoxia (7) Chronic restrictive lung disease: Code(s): J98.4 - Other disorders of lung Category: Medical (8) Asthma-COPD overlap syndrome: Code(s): J44.9 - Chronic obstructive pulmonary disease, unspecified Category: Medical Plan Continue Breztri NAM as needed oxygen supplementation 2-3L with activity and sleep. recommend oral mandibular device from dentist diuresis as tolerated did not take Provigil continue Daliresp CT chest prior to next visit follow-up in 4-6 months Orders: Orders CT chest wo IV con 03/27/24 R91.8 - Other nonspecific abnormal finding of lung field Coding Level of Care Code Est Pt Level 4 (98265) Diagnoses ABNER (obstructive sleep apnea) G47.33 Sarcoidosis D86.9 Pulmonary nodules R91.8 SOB (shortness of breath) on exertion R06.02 Pickwickian syndrome E66.2 Chronic respiratory failure with hypoxia J96.11 Respiratory failure complication: hypoxia Chronic restrictive lung disease J98.4 Asthma-COPD overlap syndrome J44.9 Time Spent (min) 17
[2023-10-23 11:21] VITALS: PULSE 71; O2SAT 97; BMI 34.6
== END 2023-10-23 11:48 | disposition home or self-care (01) ==
PROVIDERS: PCP Internal Medicine; Visit Provider Hospitalist
DX: G47.33 Obstructive sleep apnea (adult) (pediatric) (principal); D86.9 Sarcoidosis, unspecified; R91.8 Other nonspecific abnormal finding of lung field; R06.02 Shortness of breath; J96.11 Chronic respiratory failure with hypoxia; J98.4 Other disorders of lung; J44.9 Chronic obstructive pulmonary disease, unspecified
CPT/HCPCS: 99214

== ENCOUNTER → 2023-10-23 11:08 | Outpatient (BNVA) | payer MEDICARE, SELFPAY | PROVIDERS: PCP Internal Medicine; Visit Provider Hospitalist | DX: J44.9 Chronic obstructive pulmonary disease, unspecified (principal); J96.11 Chronic respiratory failure with hypoxia; J98.4 Other disorders of lung; G47.33 Obstructive sleep apnea (adult) (pediatric); D86.9 Sarcoidosis, unspecified; R91.8 Other nonspecific abnormal finding of lung field; E66.2 Morbid (severe) obesity with alveolar hypoventilation | CPT/HCPCS: 99212 ==

== ENCOUNTER 2024-03-20 08:53 | Outpatient (REF) | payer MEDICARE, SELFPAY | END 2024-03-20 08:54 | disposition home or self-care (01) | LOC: HO.CT 08:53 | PROVIDERS: PCP Internal Medicine; Visit Provider Hospitalist | DX: R91.8 Other nonspecific abnormal finding of lung field (principal) | CPT/HCPCS: 71250 ==

== ENCOUNTER → 2024-03-20 08:57 | Outpatient (BNV) | payer MEDICARE, SELFPAY | PROVIDERS: PCP Internal Medicine; Visit Provider Radiology Diagnostic Radiology | DX: R91.8 Other nonspecific abnormal finding of lung field (principal) | CPT/HCPCS: 71250 ==

== ENCOUNTER 2024-04-29 10:47 | Outpatient (AMB) | payer MEDICARE, BC, SELFPAY ==
[2024-04-29 10:58] VITALS: BP 124/78; PULSE 65; O2SAT 95
--- NOTE | 2024-04-29 10:58 | A.OFFVIS_ITS ---
Vital Signs 04/29/24 10:58 BP 124/78 Blood Pressure Location Lt brachial Position Sitting Pulse 65 Pulse Source Pulse Oximeter Pulse Oximetry (%) 95 Oxygen Delivery Method Room Air Intake Visit Reasons: COPD Allergies MIREILLE Inhibitors Allergy (Mild, Uncoded 04/29/24 11:03) Difficulty Breathing Amoxicillin Allergy (Mild, Uncoded 04/29/24 11:03) Difficulty Breathing Iodine Allergy (Mild, Uncoded 04/29/24 11:03) Rash/Hives Lisinopril Allergy (Mild, Uncoded 04/29/24 11:03) Difficulty Breathing Morphine Allergy (Mild, Uncoded 04/29/24 11:03) Bad Sleep Apnea Shellfish Allergy (Mild, Uncoded 04/29/24 11:03) Vomiting and Hives Sulfa Drugs Allergy (Mild, Uncoded 04/29/24 11:03) Rash/Hives Medication List - Last Reconciled 04/29/24 by Mena Soto LPN albuterol sulfate 2.5 mg (3 mL) inhalation BID 30 days albuterol sulfate 90 mcg/actuation 2 inhalations inhalation Q6H PRN 30 days aspirin 81 mg PO DAILY atenolol 50 mg PO DAILY atenolol 100 mg PO DAILY blue-green algae (Spirulina) mg PO ruppbtawxx-bivvczks-ezxmbhaidk 160-9-4.8 mcg/actuation (Breztri Aerosphere) 2 inhalations inhalation BID 30 days cholecalciferol (vitamin D3) 25 mcg PO DAILY clonidine HCl 0.1 mg PO BEDTIME esomeprazole magnesium 40 mg PO BID flu vacc [id number] 6mos up(PF) mL IM ipratropium bromide intranasal levothyroxine 125 mcg PO DAILY magnesium 250 mg PO DAILY magnesium 400 mg PO DAILY nebulizers As directed Oxygen Home Use As directed sertraline (Zoloft) 100 mg PO DAILY tirzepatide (Mounjaro) mg subcut varicella-zoster [id number] (PF) 50 mcg/0.5 mL 0.5 mL IM DIRECTED HPI Comments Details: The patient is a 63-year-old woman known complex sleep apnea in addition to unco ntrolled hypertension. She has failed CPAP in the past. She has been having hard time controlling her blood pressure at this time. She does use oxygen at nighttime. The oxygen therapy has been affecting beneficial. However, for the last 8 months or so she has been developing progressive shortness of breath. She gets short of breath even minimal activity. Moderate severity. Does get better with rest. She has also noticed that she has had increased weight gain. She has also feels swollen. She does complains of chest tightness. Denies any wheezing or coughing at this time. She is overly tired. She is staying busy doing work and not been able to get adequate sleep. She is also concerned that recently her got laid off. She does have a history of pulmonary nodules. The suspicion is that she had also enlarged salivary glands. We were evaluating her for potential diagnosis of sarcoidosis. However, the workup was not completed. She also had a CT scan of the chest that was personally reviewed by me. She has numerous pulmonary nodules although small. Some indeed a calcified consistent with granulomas. Indeed there may be evidence of sarcoidosis but no evidence of any end-organ disease or need for therapy at this time. We talked about the importance of her sleep apnea. She does have a complex sleep apnea. She will have a sleep study coming up on Saturday. She does have significant sleep apnea. She failed CPAP in the past and she is claustrophobic and is get about starting CPAP at this time. She thinks that the CPAP will make her worse altogether. Therefore the only other option is for her to consider an oral appliance. 09/07/2021 the patient has a telephone visit today. She has become significantly worse. she has been using the oxygen now continue sleep because o f worsening shortness of breath. Usually at 2 L. she also has significant daytime drowsiness with an [place] score of 16/24. The patient did have a split study recently which we personally reviewed. The patient does have severe sleep apnea. She was titrated on CPAP which she did have a hard time. The recommendation was for her to start CPAP therapy at a low pressure in order for her to be able to tolerated. In addition to that she was very hypoxemic and she will need oxygen as well along with her APAP therapy. I did reach out to the local [employer], [place]. the patient needs to be started on APAP ONI. She also needs a lot of encouragement and guidance. She is reluctant to use a sleep aid because of her severe disease and bad outcomes in the past. But, she may be able to take something that will not affect her respiratory drive that will help her tolerate the PAP therapy. In the meantime she continues with current respiratory therapy. She also has been on diuretics. 10/06/2021 the patient is here for a pulmonary follow-up visit. We did review her severe split study during the last visit and I did request an urgent APAP. she has not received her machine as his yet. I did call the [employer] company and they did respond to me saying that they will be setting her up today or Next week. The patient will start using the machine. She will also bring it in to the next visit. I did provide her with a prescription of gabapentin. She has been concern of taking any medications because of her significant sleep apnea and previous occurrences when she took any sleep medication where she resulted in respiratory failure. I did reassure the patient that the gabapentin is a small does and should not create such a significant impact on her respiratory drive if anything. Still she will bring her machine and we can just make sure she is using it properly and she can try the medication while she is with this during that visit. in the meantime I did request a consultation with a sleep specialist at [facility]. The patient still waiting to hear back from that visit. She continues use her oxygen with good effect. The patient continues on her diuretics. 12/13/2021 the patient is here for a pulmonary follow-up visit. Overall the patient has multiple ailments. Recently she was diagnosed with diabetes and she is having hard time with that. She is waiting for non-insulin injectable medicine hopeful that will help her with her weight and also with her sugars. In the meantime she did start the CPAP. The CPAP therapy has been affecting beneficial she she seems to be tolerating after we adjusted the pressure is a little bit more. this is a significant improvement from her baseline. I am hopeful that she can continue using it nightly. I will request that she brings her CPAP into the next visit so we can download the data and further adjust the machine accordingly. In regards to the oxygen she continues use the oxygen at 3 L continues with activity and 2 L at rest. The therapy has been affecting beneficial. Her swelling has improved dramatically. I am hopeful that if she continues improving then we can have her try conserving device such she does not have to carries the larger oxygen canister. the patient continues to have shortness of breath and cough productive in nature. She is not able to take prednisone due to her other comorbidities. Daliresp will be an option for her. 01/16/2022 the patient is here for pulmonary follow-up visit. Overall the patient appears to be doing a little better. She still dealing with the elevated blood sugars. She was recently also referred to Nephrology for micro albuminuria. Renal function still normal. She is working closely with Nephrology. She has lost some weight which is reassuring. The patient also has been trying to use her CPAP. She has been using it not every day. She understands that she needs to use it more. She is going to start using during the daytime as well. The patient is reluctant to use a sleep aid because she is concerned that she is not going to wake up. Although I do believe a mild sleep aid may help her tolerate her CPAP better. During the visit we did undergo a 6 minutes walk test. The patient was able to maintain a pulse ox of 96% on 3 L pulse which is significantly better than she was before. The patient has signi ficant elements she has a hard time caring her oxygen tanks. They do not provide a portability outside of the home. The patient needs a battery powered portable oxygen concentrator. I will request 1 from her [employer] company. 10/15/2022 The patient is here for a pulmonary follow up visit. She is no longer using the CPAP. She has tried and failed APAP multiple times. She was not a candidate for a hypoglossal nerve stimulator, and did not respond to Oral mandibular device. We briefly spoke about tracheostomy, but, I honestly feel that this will result in a worsening quality of life. If her condition were to worsen then we can further discuss that option. She does use the oxygen 17/12. She went back to the continuous oxygen since the POC was not enough. She developed severe abdominal pain and admitted to [facility] briefly. She had a CT abdomen which I personally reviewed the lung cuts. It appears that se has new pulmonary nodules suggestive of bronchiolitis. Likely related to a viral sy ndrome. No evidence of pneumonia nor ILD. Clinically the patient feels better. She is not looking to have additional studies at this time. As long as she is not worsening we can get a repeat CT chest in 8-12 months. 06/13/2023 the patient is here for a pulmonary follow-up visit. Recently she did have COVID back actually the end of April. She then tested positive again. She had hard time getting rid of it. She finally was able to clear the COVID but he resulted in significant sinusitis. She went to her primary care doctor and she was given prednisone and also antibiotics. Although it only partially treated. Will go ahead and give her another course of antibiotics. Will hold the prednisone specially since she is already cushingoid. The patient also has been using the oxygen with good effect. She is working on weight loss. The patient still not using any APAP therapy. We did talk about other modalities such as a elastic mandibular device that may provides minimal relief but will provide some relief to treat her underlying sleep apnea. At this point any intervention will be helpful. The patient unfortunately did have an MRI done when she went to [facility] and she was found to have a new chronic lacunar infarct. This is not her 1st stroke. She understands that not using her CPAP, untreated sleep apnea can result in increased cerebrovascular disease. The buddy martinez does have significant chronic fatigue after having the COVID. She does not feel the same as she did prior to the COVID. Therefore, she will be a good candidate for Provigil that she can use a small dose in the morning to see if this provides better sleep-wake cycle. 10/23/2023 the patient is here for pulmonary follow-up visit. Overall the patient has been doing okay. She has been trying to work on weight loss. She has been using non-insulin injectables for diabetes although she has not seen significant weight loss. She is also using her oxygen with good effect. Lower extremity edema is okay. She has been working with elevated blood pressures. She did see Nephrology and her blood pressure is better controlled. Now she has been evaluated for other potential conditions which could be associated. Patient also continues with her underlying issues with sleep apnea. Although seems to be waking up okay. She never take the Provigil because she was concerned about the side effects. The patient does wake up at 06:00 o'clock in the morning is able to be effective during the daytime. So therefore this point seems like she does need Provigil. Still we talked about a mandibular device. The patient should be considering a oral mandibular device to help with snoring and help her with some degree of obstruction although we not cover or completely treat her sleep apnea and may partially helpful she will talk to the dentist soon about that. She continues to be on prednisone which is reassuring. We did look at a CT scan of the abdomen that she had back in 2022 demonstrating extensive reticular changes suggesting pulmonary fibrosis. Therefore will request a CT scan of the chest prior to her next visit. The patient should also be getting an echocardiogram specially with elevated blood pressure. And she has not had 1 by the time we see her next we will order 1. 05/09/2024 the patient is here for a pulmonary follow-up visit. The patient overall has been doing fair. Moreover the standpoint she seems to be stable using her oxygen. The oxygen therapy has been affecting beneficial. She does use it 24 hours a day. The patient did undergo a CT scan of the chest back in 02/14/2024 which I personally review with her. The patient does have some pulmonary nodules that appeared to be stable. In addition to that I do not appreciate any active sarcoidosis at this time and I do not see any active interstitial lung disease. Her pulmonary trunk is difficult to assess based on the fact that the CT scan does not have contrast. But it seems like the pulmonary trunk is not significantly dilated. The patient is having issues with sugars though her sugars are significantly high up to 400 at the time. She feels very fatigued. Explained to her that this is in part the fact that she is not treating her sleep apnea but also the fact that her sugars are still high. She needs to follow-up with Endocrinology. I did give him information in order for her to look into endocrinology this time. As we know the patient does have severe sleep apnea and she is reluctant to use CPAP therapy. The patient does have an elevated BMI and therefore I do not believe she would be a good candidate for an inspire device in addition to that her sugars are high she was she is high risk for any kind of surgical intervention. [facility] Medical History Adjustment disorder Asthma-COPD overlap syndrome Chronic respiratory failure Chronic restrictive lung disease Left ventricular hypertrophy ABNER (obstructive sleep apnea) Pickwickian syndrome Pulmonary nodules Sarcoidosis Surgical History Hx of cholecystectomy Hx of hysterectomy Family History Father CVD (cardiovascular disease) Mother CVD (cardiovascular disease) Social History Patient Tobacco Use Status: Never used Tobacco Review of Systems Const Denies chills, Reports daytime sleepiness, Denies difficulty sleeping, Reports fatigue, Denies fever(s), Denies frequent falls, Reports headache(s), Reports snoring, Reports stops breathing during sleep, Denies weakness, Denies weight gain and Reports weight loss ENT Denies dizziness, Reports headache(s), Reports nasal congestion, Reports nasal discharge, Reports nasal obstruction, Reports sinus pain and Reports sinus pressure Card Denies chest pain, Denies leg edema, Denies lightheadedness, Denies palpitations, Denies dyspnea, Reports dyspnea on exertion, Reports orthopnea and Denies other (loss of consciousness) Resp Denies cough, Denies dyspnea, Reports dyspnea on exertion and Reports snoring GI Denies hematochezia and Denies change in stool character Musc Denies abnormal gait, Denies muscle weakness, Denies numbness, Denies radiating pain into limb and Denies tingling Neuro Denies abnormal gait, Denies dizziness, Denies frequent falls, Reports headache(s), Denies numbness, Denies tingling and Denies weakness Endo Reports fatigue and Denies palpitations Physical Exam Vital Signs: Last Vital Signs Pulse 65 04/29/24 10:58 BP 124/78 04/29/24 10:58 Pulse Ox 95 04/29/24 10:58 Oxygen Delivery Method Room Air 04/29/24 10:58 Const General: alert Orientation/consciousness: patient oriented x3 HEENT General nose exam: Abnormal external nose present and Nasal discharge present Neck Neck: Yes supple Chest Chest palpation & inspection: normal inspection of the chest Resp Effort & Inspection: normal respiratory effort Auscultation: no wheezes and diminished lung sounds Cardio Rate: regular rate Rhythm: regular rhythm Heart sounds: S1 normal heart sound present, S2 normal heart sound present and normal S1 and S2 GI Palpation (GI): Soft to palpation and nontender Auscultation: normal bowel sounds Skin General skin exam: rashes and/or lesions noted Neuro General: patient oriented x3 Extrem General: No clubbing, No cyanosis and No edema Psych Appearance: well kempt Affect: Sad affect present Assessment & Plan Assessment & Plan (1) ABNER (obstructive sleep apnea): Code(s): G47.33 - Obstructive sleep apnea (adult) (pediatric) Category: Medical (2) Sarcoidosis: Comment: currently not active Code(s): D86.9 - Sarcoidosis, unspecified Category: Medical (3) Pulmonary nodules: Code(s): R91.8 - Other nonspecific abnormal finding of lung field Category: Medical (4) SOB (shortness of breath) on exertion: Code(s): R06.02 - Shortness of breath Category: Medical (5) Pickwickian syndrome: Code(s): E66.2 - Morbid (severe) obesity with alveolar hypoventilation Category: Medical (6) Chronic respiratory failure: Comment: RUN: 10/08/212205 PAGE 1 [facility] [address] [place] [id number] Makeup Sales Advisor: Vladimir Torre M.D. Specimen Inquiry Name: Tricia Golden Age/Sex: 60/F : 1960 Unit#: [id number] Attend Dr: Campos Jackson MD Re01/24/21 Status: DEP REF Location: .LAB Disch: SPEC : [id number] DEON: 01/24/21 STATUS: COMP REQ : [id number] RECD: 01/24/[address]: Campos Jackson MD COMP: 01/24/21 ENTERED: 01/24/[address]: JORGE LUIS GALARZA MD ORDERED: ABG - POC COMMENTS: TESTED ON [id number] BY [id number] Test Result Flag Reference Site ABG pH 7.44 7.35-7.45 ABG pCO2 40 32-45 mmHg ABG pO2 68 L 83-108 mmHg ABG HCO3- 27 H 22-26 mmol/L ABG O2 % Sat. 92.0 % Code(s): J96.10 - Chronic respiratory failure, unspecified whether with hypoxia or hypercapnia Category: Medical Qualifiers: Respiratory failure complication: hypoxia Qualified Code(s): J96.11 - Chronic respiratory failure with hypoxia (7) Chronic restrictive lung disease: Code(s): J98.4 - Other disorders of lung Category: Medical (8) Asthma-COPD overlap syndrome: Code(s): J44.9 - Chronic obstructive pulmonary disease, unspecified Category: Medical Plan Continue Breztri NAM as needed oxygen supplementation 2-3L with activity and sleep. recommend oral mandibular device from dentist diuresis as tolerated continue Daliresp needs DM control follow-up in 4-6 months Coding Level of Care Code Tele Est Pt Level 4 (18911) Complex EM visit Add On G2211 Diagnoses ABNER (obstructive sleep apnea) G47.33 Sarcoidosis D86.9 Pulmonary nodules R91.8 SOB (shortness of breath) on exertion R06.02 Pickwickian syndrome E66.2 Chronic respiratory failure with hypoxia J96.11 Respiratory failure complication: hypoxia Chronic restrictive lung disease J98.4 Asthma-COPD overlap syndrome J44.9 Time Spent (min) 18
--- OUTSIDE RECORDS SUMMARY | 2024-05-05 17:46 | XMS_ITS | Patient Health Record ---
Author Organization [facility] Address [address] [place] [address] Care Team Providers Care Powder Expert Name Role Phone Suman Ordonez Primary Care Provider RAZ Irizarry Unavailable [phone] ALLERGIES Allergen (clinical drug ingredient) Drug/Non Drug Allergy documented on EMR Reaction Allergy Type Onset Date Status Substance with angiotensin II receptor antagonist mechanism of action (substance) angiotensin 2 inhibitors (uncoded) Unknown Allergy Active angiotensin-converti ng enzyme inhibitor (FN) angiotensin converting enzyme (uncoded) Unknown Allergy Active inhibitors (uncoded) chest pressure, difficulty breathing Allergy Active iodine topical (uncoded) anaphylaxis Allergy Active peppers (uncoded) severe vomiting Allergy Active Shellfish (FN) shellfish (uncoded) vomiting and diarrhea Allergy Active ciprofloxacin Cipro Unknown Drug Allergy Act debi oxycodone OxyCONTIN respiratory arrest Drug Allergy Active angiotensin-converti ng enzyme inhibitor (FN) MIREILLE Inhibitors Unknown Drug Allergy Active amoxicillin Amoxicillin Unknown Drug Allergy Act debi codeine Codeine hives Drug Allergy Active lisinopril Lisinopril throat closing Drug Allergy Active Substance with sulfonamide structure and antibacterial mechanism of action (substance) Sulfa Antibiotics anaphylaxis Drug Allergy Active morphine Morphine Unknown Drug Allergy Active REASON FOR REFERRAL No Information MEDICATIONS Medication SIG (Take, Route, Frequency, Duration) Notes Start Date End Date Status Synthroid 125 MCG 1 tablet in the morning on an empty stomach Orally Once a day Active Vitamin D3 50 MCG (1999) 1 tablet Orally Once a day Active Breztri Aerosphere 160-9-4.8 MCG/ACT 2 puffs Inhalation Twice a day Active Cetirizine HCl 10 MG 1 tablet Orally Onc e a day Active cloNIDine HCl 0.1 MG 1 tablet Orally Onc e a day Active Cyanocobalamin 1000 MCG/ML 1 mL Injection IM ev berny 28 days Active Esomeprazole Magnesium 40 MG 2 capsules Orally Once a day Active Fluticasone Propionate 50 MCG/ACT 1 spray in each nostril Nasally Once a day Active methylPREDNISolone 32 MG 1 tablet in the morning with food or milk Orally Once a day Active Mounjaro 5 MG/0.5ML as directed Subcutaneous every 7 days Active ProAir HFA Active Adapalene 0.1 % 1 application in the evening Externally Once a day Active Sertraline HCl 100 MG 1 tablet Orally On ce a day Active Atenolol 50 MG 1 tablet Orally Once a day Active Barium Sulfate 2.1 % as directed Combination Active Encounters Encounter Location Date Provider Diagnosis [facility] [address] [facility] [address] [place] [address] 05/28/2023 RAZ CHILD PLAN OF TREATMENT No Information Insurance Providers Payer Name Payer Address Payer Phone Subscriber Number Group Number Insured Name Patient Relationship to Insured Coverage Start Date Coverage End Date Cigna [address] [place] [phone] [id number] Tricia Golden Self - patient is the insured MEDICAL (GENERAL) HISTORY Medical History History ICD Code abnormal involuntary movement acne vulgaris aphthous ulcer asthma- COPD overlap syndrome chronic bronchitis major depression digital mucinous cyst of finger of right hand enlarged lymph node in neck epigastric pain gastro-esophageal reflux disease Gilbert's disease granulomatous lung disease hemorrhoids hyperplastic polyp of intestine hypertension hypertriglyceridemia hypothyroidism left ventricular hypertrophy- mild deysi ntric on echocardiogram LLQ abdominal pain migraine nodules of lungs- 5mm RUL, 2 mm superior segment lingula, 3mm lateral left lower lobe obesity hypoventilation syndrome ABNER- obstructive sleep apnea osteoporosis pernicious anemia pharyngitis pure hypercholesterolemia rectocele red eye right renal cyst sarcoidosis lung severe obesity (BMI 35.0-39.9) with mary anne rbidity suspension of bladder- Dr. Ryan SKINNER- total abdominal hysterectomy TIA tongue ulcer type 2 diabetes mellitus with albuminuri a umbilical pain + COVID 05/16/2023 COVID vaccinated Surgical History Surgery Date(Month/Year) colonoscopy 05/27/2002 cyst hysterectomy cholecystectomy
--- OUTSIDE RECORDS SUMMARY | 2024-05-05 17:46 | XMS_ITS ---
Author Organization [facility] Address [address] [place] [address] Care Team Providers Care Blunger Name Role Phone Suman Ordonez Primary Care Provider PEPPER Irizarry Unavailable [phone] ALLERGIES Allergen (clinical drug ingredient) Drug/Non Drug [...] Morphine Unknown Drug Allergy Active REASON FOR VISIT diabetic check MEDICATIONS Medication SIG (Take, Route, Frequency, Duration) Notes Start Date End Date Status Synthroid 125 MCG 1 tablet in the morning on an empty stomach Orally Once a day Active methylPREDNISolone 32 MG 1 tablet in the morning with food or milk Orally Once a day Active Mounjaro 5 MG/0.5ML as directed Subcutaneous every 7 days Active ProAir HFA Active Sertraline HCl 100 MG 1 tablet Orally On ce a day Active Vitamin D3 50 MCG (1999 UT) 1 tablet Orally Once a day Active Breztri Aerosphere 160-9-4.8 MCG/ACT 2 puffs Inhalation Twice a day Active Adapalene 0.1 % 1 application in the evening Externally Once a day Active Atenolol 50 MG 1 tablet Orally Once a day Active Barium Sulfate 2.1 % as directed Combination Active Cetirizine HCl 10 MG 1 tablet Orally Onc e a day Active cloNIDine HCl 0.1 MG 1 tablet Orally Onc e a day Active Cyanocobalamin 1000 MCG/ML 1 mL Injection IM ev berny 28 days Active Esomeprazole Magnesium 40 MG 2 capsules Orally Once a day Active Fluticasone Propionate 50 MCG/ACT 1 spray in each nostril Nasally Once a day Active Encounters Encounter Location Date Provider Diagnosis [facility] [address] [facility] [address] [place] [address] 05/28/2023 PEPPER REDMAN PLAN OF TREATMENT No Information Progress Notes * Angela STALEYmaximilianDOB:[birth year] (63 yo F)Acc No.[id number]:05/28/2023 Consult note Patient:??Angela STALEYricia Provider:??Pepper Redman DPM :1960?Age:62 Y?Sex:Fe male Date:05/28/2023 Phone: Address:[address] [place] [id number] Pcp:Suman Ordonez Subjective: * Chief Complaints: * ?1. Diabetic check. * Medical History:??Abnormal i nvoluntary movement, Acne vulgaris, Aphthous ulcer, asthma- COPD overlap syndrome, Chronic bronchitis, Major depression, Digital mucinous cyst of finger of right hand, Enlarged lymph node in neck, Epigastric pain, Gastro-esophageal reflux disease, Gilbert's disease, Granulomatous lung disease, Hemorrhoids, Hyperplastic polyp of intestine, Hypertension, Hypertriglyceridemia, Hypothyroidism, Left ventricular hypertrophy- mild concentric on echocardiogram, LLQ abdominal pain, Migraine, nodules of lungs- 5mm RUL, 2mm superior segment lingula, 3mm lateral left lower lobe, Obesity hypoventilation syndrome, ABNER- obstructive sleep apnea, Osteoporosis, Pernicious anemia, Pharyngitis, Pure hypercholesterolemia, Rectocele, Red eye, Right renal cyst, Sarcoidosis lung, severe obesity (BMI 35.0-39.9) with comorbidity, suspension of bladder- Dr. Davis BRODY- total abdominal hysterectomy, TIA, Tongue ulcer, Type 2 diabetes mellitus with albuminuria, Umbilical pain, + COVID 05/16/2023, COVID vaccinated. * Surgical History:??colonosco py 05/27/2002, cyst , hysterectomy , cholecystectomy . * Family History:??Father: dec eased, dementia, stroke.??Mother: , CAD- coronary artery disease, COPD, colon cancer, melanoma of skin.?? * Social History:?Tobacco: former smoker Alcohol: never. * Medications:??Taking Vitamin D3 50 MCG (2000 UT) Tablet 1 tablet Orally Once a day , Taking Synthroid 125 MCG Tablet 1 tablet in the morning on an empty stomach Orally Once a day , Taking Sertraline HCl 100 MG Tablet 1 tablet Orally Once a day , Taking ProAir HFA , Taking Mounjaro 5 MG/0.5ML Solution Pen-injector as directed Subcutaneous , Notes to Pharmacist: every 7 days, Taking methylPREDNISolone 32 MG Tablet 1 tablet in the morning with food or milk Orally Once a day , Taking Fluticasone Propionate 50 MCG/ACT Suspension 1 spray in each nostril Nasally Once a day , Taking Esomeprazole Magnesium 40 MG Capsule Delayed Release 2 capsules Orally Once a day , Taking Cyanocobalamin 1000 MCG/ML Solution 1 mL Injection , Notes to Pharmacist: IM every 28 days, Taking cloNIDine HCl 0.1 MG Tablet 1 tablet Orally Once a day , Taking Cetirizine HCl 10 MG Tablet 1 tablet Orally Once a day , Taking Breztri Aerosphere 160-9-4.8 MCG/ACT Aerosol 2 puffs Inhalation Twice a day , Taking Barium Sulfate 2.1 % Suspension as directed Combination , Taking Atenolol 50 MG Tablet 1 tablet Orally Once a day , Taking Adapalene 0.1 % Cream 1 application in the evening Externally Once a day * Allergies:??shellfish: vomit ing and diarrhea, Cipro, MIREILLE Inhibitors, peppers: severe vomiting, OxyCONTIN: respiratory arrest, Amoxicillin, angiotensin 2 inhibitors, angiotensin converting enzyme, inhibitors: chest pressure, difficulty breathing, Codeine: hives, iodine topical: anaphylaxis, Lisinopril: throat closing, Morphine, Sulfa Antibiotics: anaphylaxis. Objective: Therapeutic Interventions: Assessment: Plan: * Treatment: * Billing Information: * Visit Code:?? * Procedure Codes:?? * Sign off status: Pending * Provider:??Pepper Redman DPM Date: ??05/28/2023
--- OUTSIDE RECORDS SUMMARY | 2024-05-05 17:46 | XMS_ITS | Continuity of Care Document ---
Author Organization [facility] Address [address] [place] [address]- Care Team Providers Care Relay Mechanic Name Role Phone Mery VILLASEÑOR, Suman Negro [facility] Care [id number] Date[facility]s): 04/01/24 - 05/01/[address] [facility] [address] [place] [id number] Attending Physician: AdmEzequiel glover Admitting Physician: AdmtrEzequiel Referring Physician: Admtr, Ar8 Encounter Type: Triage Allergies, Adverse Reactions, Alerts Substance Criticality Severity Reaction Reaction Severity Status codeine hives Active doxycycline 1 Heaviness sensation Active amoxicillin Active iodine topical anaphylaxis Act debi sulfa drugs anaphylaxis Active angiotensin converting enzyme inhibitors chest pressure, diff breathing Active OxyCONTIN RESP ARREST Active morphine Sleepy Morphine allergy Active lisinopril throat closing Acti ve shellfish High criticality Severe vomiting an d diarrhea Active angiotensin II inhibitors Active Cipro Unable to assess criticality Persistent Severe Active Other Food Allergy peppers- severe vomiting Active MIREILLE inhibitors Activ e 1chest heaviness Immunizations Given and Recorded Vaccine Date Status Refusal Reason influenza virus vaccine, inactivated 04/09/24 Isaias rded influenza virus vaccine, inactivated 03/01/23 Give n influenza virus vaccine, inactivated 03/29/22 Give n influenza virus vaccine, inactivated 03/13/21 Isaias rded influenza virus vaccine, inactivated 02/17/20 Isaias rded influenza virus vaccine, inactivated 01/27/19 Isaias rded influenza virus vaccine, inactivated 1 03/27/18 Re corded influenza virus vaccine, inactivated 01/28/18 Isaias rded influenza virus vaccine, inactivated 2 03/05/17 Gi mercedez influenza virus vaccine, inactivated 3 02/24/16 Re corded influenza virus vaccine, inactivated 4 02/24/16 Re corded influenza virus vaccine, inactivated 5 03/18/15 Gi mercedez influenza virus vaccine, inactivated 6 02/22/14 Gi mercedez influenza virus vaccine, inactivated 02/19/13 Give n influenza virus vaccine, inactivated 02/17/09 Give n influenza virus vaccine, inactivated 03/12/08 Give n pneumococcal 20-valent conjugate vaccine 10/15/22 Recorded SARS-CoV-2 (COVID-19) mRNA-1273 vaccine 05/23/21 R ecorded SARS-CoV-2 (COVID-19) mRNA-1273 vaccine 08/04/20 R ecorded SARS-CoV-2 (COVID-19) mRNA-1273 vaccine 07/09/20 R ecorded zoster vaccine, inactivated 04/15/20 Recorded zoster vaccine, inactivated 02/08/18 Recorded Influenza Virus Vaccine (oldterm) 02/25/20 Recorde d Influenza Virus Vaccine (oldterm) 03/04/19 Recorde d Influenza Virus Vaccine (oldterm) 7 04/02/07 Given FluLaval (oldterm) 8 02/27/12 Given FluLaval (oldterm) 03/14/10 Given Fluzone (oldterm) 03/09/11 Given Tet/Diphth/Acel, Pertussis (oldterm) 07/30/07 Give n 1Location History: [facility] 2Result Comment: [03/05/2017] [facility] [id number] 3Location [facility]: [facility] 4Result Comment[facility]27[facility]2016[facility] 5Result Comment: [03/18/2015] Hollie Horner NP 6Result Comment: [02/22/2014] ordered by Dr Ordonez 7Admin Note: [facility] 8Admin Note: VIS given dated 11/26/11 Medications Alcohol Pads See Instructions, # 200 each, Refills 5, Tot. Refills 5, Maintenance, use as directed for Type 2 DM. Test 1-2 x a day Dx 11.65, 11/30/21 11:34:00 AM EDT, Compound, 155, cm, 11/30/21 10:57:00 EDT, Height, 89.4, kg, 01/22/20 14:31:00 EDT, Dry Weight Start Date: 11/30/21 Stop Date: 05/29/22 Status: Ordered Quantity: 200.0 Unit: each Repeat number: 6 aspirin 81 mg oral delayed release tablet 81 mg, 1, tablet, By Mouth, Daily at bedtime, # 30 tablet, Refills 0, Maintenance, 06/25/23 10:32:00AM EST, Partial fill upon patient request if the prescription is for a schedule II opioid drug. Start Date: 06/25/23 Status: Ordered Quantity: 30.0 Unit: tablet Repeat number: 1 atenolol 50 mg oral tablet 50 mg, 1, tablet, By Mouth, 2 times a day, # 90 tablet, Refills 0, Maintenance, 11/08/23 1:35:00 PM EDT, Partial fill upon patient request if the prescription is for a schedule II opioid drug. Start Date: 11/08/23 Status: Ordered Quantity: 90.0 Unit: tablet Repeat number: 1 Breztri Aerosphere inhalation aerosol 2 puffs, Inhalation, 2 times a day, rinse mouth and throat after use, # 5.9 Gm, 0 Refills, Maintenance, 12/22/21 9:46:00 AM EDT, Aerosol, Partial fill upon patient request if the prescription is for aschedule II opioid drug. Start Date: 12/22/21 Status: Ordered Quantity: 5.9 Unit: g Repeat number: 1 cloNIDine 0.1 mg oral tablet See Instructions, Take 1 tablet as directed as needed for blood pressure >150/100, Refills 0, Maintenance, 03/04/20 6:24:00 PM EDT, Instructions Replace Required Details Start Date: 03/04/20 Status: Ordered Repeat number: 1 cyanocobalamin 1000 mcg/ml injectable solution = 1,000 mcg, Intramuscular, Every 28 days, # 1 mL, 0 Refills, Maintenance, Lot #[id number] Exp: 01/03, 07/14/19 4:47:00 PM EST Start Date: 07/14/19 Status: Ordered Quantity: 1.0 Unit: mL Repeat number: 1 fluticasone 50 mcg/inh nasal spray See Instructions, SPRAY 2 SPRAYS INTO EACH NOSTRIL EVERY MORNING, # 16 mL, 0 Refills, [id number], 30, SPRAY 2 SPRAYS INTO EACH NOSTRIL EVERY MORNING, 155, cm, 07/04/21 11:45:00 EST, Height, 89.4, kg, 01/22/20 14:31:00 EDT, Dry Weight Start Date: 07/27/21 Status: Ordered Quantity: 16.0 Unit: mL Repeat number: 1 Mounjaro 2.5 mg/0.5 mL subcutaneous solution = 2.5 mg, Subcutaneous Injection, Every week, rotate injection sites, # 4 each, 2 Refills, Maintenance, 04/21/24 2:52:00 PM EST, Solution, [id number], Partial fill upon patient request if the prescription is for a schedule II opioid drug., 155, cm, 04/21/24 14:40:00 EST, Height, 86.6, kg, 06/27/23 14:16:00 EST, Dry Weight Start Date: 04/21/24 Status: Ordered Quantity: 4.0 Unit: each Repeat number: 3 Indication: Type 2 diabetes mellitus with hyperglycemia NexIUM 24HR 20 mg oral delayed release capsule 1 capsule = 20 mg, By Mouth, Daily, 0 Refills, Maintenance, 01/16/24 11:35:00 AM EDT, Partial fill upon patient request if the prescription is for a schedule II opioid drug. Start Date: 01/16/24 Status: Ordered Repeat number: 1 One Touch Ultra Test Strips See Instructions, # 100 each, Refills 11, Tot. Refills 11, Maintenance, Use to test BID Dx: DM typeII (E11.9), 08/02/22 11:34:00 AM EST, Supply, 155, cm, 04/06/22 13:04:00 EST, Height, 90, kg, 07/29/22 9:52:00 EDT, Dry Weight Start Date: 08/02/22 Status: Ordered Quantity: 100.0 Unit: each Repeat number: 12 One Touch UltraSoft Lancets See Instructions, # 100 each, Refills 11, Tot. Refills 11, Maintenance, Use to test BID Dx: DM typeII (E11.9), 08/02/22 11:34:00 AM EST, Supply, 155, cm, 04/06/22 13:04:00 EST, Height, 90, kg, 12/22/21 9:52:00 EDT, Dry Weight Start Date: 08/02/22 Status: Ordered Quantity: 100.0 Unit: each Repeat number: 12 ProAir HFA 90 mcg/inh inhalation aerosol 1 puffs, Inhalation, Every 6 hours, PRN as needed for wheezing, # 6.7 Gm, 0 Refills, Maintenance, 12/22/21 9:47:00 AM EDT, Aerosol, Partial fill upon patient request if the prescription is for a schedule II opioid drug. Start Date: 12/22/21 Status: Ordered Quantity: 6.7 Unit: g Repeat number: 1 sertraline 100 mg oral tablet 1 tablet = 100 mg, By Mouth, Daily, # 90 tablet, 3 Refills, Maintenance, 10/11/23 5:44:00 PM EDT, Tablet, [id number], Partial fill upon patient request if the prescription is for a schedule II opioid drug., 155, cm, 10/09/23 12:14:00 EDT, Height, 86.6, kg, 06/27/23 14:16:00 EST, DryWeight Start Date: 10/11/23 Status: Ordered Quantity: 90.0 Unit: tablet Repeat number: 4 Synthroid 0.125 mg oral tablet 1 tablet, By Mouth, Daily, # 90 Unknown, 0 Refills, Maintenance, 12/24/23 2:12:00 PM EDT, [facility], 155, cm, 12/20/23 14:18:00 EDT, Height, 86.6, kg, 06/27/23 14:16:00 EST, Dry Weight Start Date: 12/24/23 Status: Ordered Quantity: 90.0 Unit: Unknown Repeat number: 1 Vitamin D3 2000 intl units oral tablet 3 tabs, By Mouth, Daily, 0 Refills, Maintenance, 12/22/21 9:49:00 AM EDT, Partial fill upon patient request if the prescription is for a schedule II opioid drug. Start Date: 12/22/21 Status: Ordered Repeat number: 1 Problem List Condition Confirmation Course Effective Dates Status Health Status Informant Abnormal involuntary movement Confirmed Active Acne vulgaris Confirmed Active Aphthous ulcer Confirmed Active Asthma-COPD overlap syndrome Confirmed Active Basilar migraine. Doubt TIA 1 Confirmed 04/25/07 Active Renal cyst, right. Needs 1 yr redo 09/2023 Confirmed 09/25/22 Active Digital mucinous cyst of finger of right hand Confirmed Active Primary hypertension Confirmed Active Obesity hypoventilation syndrome Confirmed Active Gastro-esophageal reflux disease Confirmed Active Gilbert's disease Confirmed Active Hemorrhoids Confirmed Active History of cerebral infarction. Left putamen lacunar infarct 2 Confirmed 06/08/23 Active Hyperplastic polyp of intestine Confirmed 2002 Active Hypothyroidism due to Nina's thyroiditis Confirmed Active Left ventricular hypertrophy - mild, concentric on echocardiogram Confirmed 04/25/07 Active Enlarged lymph node in neck Confirmed Active Depression, major, single episode, in partial remission Confirmed Active Nodules of lungs - 5 mm RUL, 2 mm superior segment lingula, 3 mm lateral left lower lobe Confirmed 09/26/00 Active ABNRE - Obstructive sleep apnea Confirmed 1993 Active Osteoporosis Confirmed Active Pernicious anemia Confirmed Active Hypertriglyceridemia Confirmed Active Granulomatous lung disease Confirmed Active Sarcoidosis, lung Confirmed Active Pure hypercholesterolemia Confirmed Active Rectocele Confirmed Active Severe obesity (BMI 35.0-39.9) with comorbidity Confirmed Active Chronic bronchitis, simple Confirmed Active Suspension of bladder - Dr. Davis Confirmed 2002 Active BRODY - Total abdominal hysterectomy Confirmed Active TIA Confirmed 04/24/07 Active Type 2 diabetes mellitus with albuminuria Confirmed Active Tongue ulcer Confirmed Active 1Admitted March 2007 with left sided weakness. Patient seen by neuro. Probable basilar migraine. Doubt TIA. 2New, chronic left putamen lacunar infarct seen on brain MRI dated 06/08/2023 Social History Social History Type Response Smoking Status Former smoker entered on: 08/16/15 Sex Sex Representation Female (finding) Patient Care team information Care Team Personnel Name: Suman Ordonez MD Position: S Physician - Primary Care Member Role: PCP Address: [address] [place] [address], [place] [address]- Telecom: Name: Sosa Daugherty RN Position: [facility] AMB Nurse Member Role: Primary Care Nurse Name: Jose Sinclair MD Position: [facility] Outreach Member Role: Lifetime Consulting Physician Address: [address] [facility] [place] [address]- Telecom: Care Team Related Persons Name: SANDRA STALEY Name: BAKARI STALEY Insurance Providers Guarantor name: QUYEN STALEY Health Plan Information #: 1 Payer: NADYA Member Number: NA Policy Number: NA Group Number: NA
--- OUTSIDE RECORDS SUMMARY | 2024-05-05 17:47 | XMS_ITS | Patient Health Record ---
Author Organization [facility] Address [address] [place] [address] Support Name Relationship Address Phone Tricia Golden Guarantor Unknown [phone] Allergies Allergen (clinical drug ingredient) Drug/Non Drug Allergy documented on EMR Reaction Allergy Type Onset Date Status Iodine shortness of breath Drug Allergy Active lisinopril Lisinopril shortness of breath Drug Allergy Active morphine Morphine shortness of breath Drug Allergy Active Shellfish (FN) Shellfish-derived Products hives Drug Allergy Active Substance with sulfonamide structure and antibacterial mechanism of action (substance) Sulfa Antibiotics hives Drug Allergy Active Reason For Referral No Information Medications Medication SIG (Take, Route, Frequency, Duration) Notes Start Date End Date Status Breztri Aerosphere 160-9-4.8 MCG/ACT 2 puffs Inhalation Twice a day Active Ethacrynic Acid 25 MG 1 tablet with food or milk Orally Twice a day Active Zoloft 100 MG 1 tablet Orally Once a day Active Synthroid 125 MCG 1 tablet in the morn ing on an empty stomach Orally Once a day Active NexIUM 40 MG 1 capsule Orally Onc e a day Active Spironolactone 25 MG 1 tablet Orally Active Atenolol 50 MG 1 tablet Orally Once a day Active Potassium Active Magnesium Active Vitamin D3 Complete - as directed Orally Active Symbicort Active Social History Tobacco Use: Social History Observation Description Date Details (start date - stop date) Former Smoker NA - NA Tobacco Use/Smoking Question Answer Notes Are you a former smoker Alcohol Screen (Audit-C) Question Answer Notes Did you have a drink containing alcohol in the p ast year? No Points 0 Interpretation Negative Problems Problem Type SNOMED Code ICD Code Onset Dates Problem Status W/U Status Risk Notes Problem Sarcoidosis (16528223) Sarcoidosis, unspecified (D86.9) Active confirmed Problem Hypothyroidism (67406071) Hypothyroidism, unspecified (E03.9) Active confirmed Problem Epileptic seizures related to external causes, not intractable, without status epilepticus (G40.509) Active confirmed Problem Transient ischemic attack (553377396) Other transient cerebral ischemic attacks and related syndromes (G45.8) Active confirmed Problem Obstructive sleep apnea syndrome (disorder) (91123085) Obstructive sleep apnea (adult) (pediatric) (G47.33) Active confirmed Problem Uncomplicated mild persistent asthma (772335235) Mild persistent asthma, uncomplicated (J45.30) Active confirmed Problem Gastro-esophageal reflux disease without esophagitis (006721661) Gastro-esophagea l reflux disease without esophagitis (K21.9) Active confirmed Problem Body mass index 35.00 to 39.99 (427154398140852) Body mass index (BMI) 38.0-38.9, adult (Z68.38) Active confirmed Problem Essential hypertension (29323847) Essential (primary) hypertension (I10) Active confirmed Problem Body mass index 30+ - obesity (finding) (230543603) Body mass index [BMI] 60.0-69.9, adult (Z68.44) Active confirmed Plan Of Treatment No Information Insurance Providers Payer Name Payer Address Payer Phone Subscriber Number Group Number Insured Name Patient Relationship to Insured Coverage Start Date Coverage End Date [facility] [address] [place] [phone] [id number] Tricia Golden Self - patient is the insured Medical (General) History Medical History History ICD Code Personal history of COVID-19 central/obstructive apnea on oxygen via nasal cannula at night Nina's thyroid hypertension and she follows up with Dr. Calix anemia sarcoidosis, lupus pernio GERD mild persistent asthma TIA and seizure disorder Surgical History Surgery Date(Month/Year) total hysterectomy tummy tuck breast reconstruction
== END 2024-04-29 11:39 | disposition home or self-care (01) ==
PROVIDERS: PCP Internal Medicine; Visit Provider Hospitalist
DX: J44.9 Chronic obstructive pulmonary disease, unspecified (principal); G47.33 Obstructive sleep apnea (adult) (pediatric); D86.9 Sarcoidosis, unspecified; R91.8 Other nonspecific abnormal finding of lung field; E66.2 Morbid (severe) obesity with alveolar hypoventilation; J96.11 Chronic respiratory failure with hypoxia; J98.4 Other disorders of lung
CPT/HCPCS: 99214; G2211

== ENCOUNTER → 2024-04-29 10:47 | Outpatient (BNVA) | payer MEDICARE, BC, SELFPAY | PROVIDERS: PCP Internal Medicine; Visit Provider Hospitalist | DX: J44.9 Chronic obstructive pulmonary disease, unspecified (principal); J96.11 Chronic respiratory failure with hypoxia; J98.4 Other disorders of lung; I10 Essential (primary) hypertension; R91.8 Other nonspecific abnormal finding of lung field; D86.9 Sarcoidosis, unspecified; E66.2 Morbid (severe) obesity with alveolar hypoventilation; Z99.81 Dependence on supplemental oxygen | CPT/HCPCS: 99212 ==

== ENCOUNTER 2024-10-30 10:52 | Outpatient (AMB) | payer MEDICARE, BC, SELFPAY ==
[2024-10-30 10:56] VITALS: BP 134/74; PULSE 73; O2SAT 98; BMI 34.7
--- NOTE | 2024-10-30 10:56 | MHC.OFFVIS ---
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 Accompanied by: Self / Same As Patient Allergies MIREILLE Inhibitors Allergy (Mild, Uncoded 04/29/24 11:03) Difficulty Breathing Amoxicillin Allergy (Mild, Uncoded 04/29/24 11:03) Difficulty Breathing Iodine Allergy (Mild, Uncoded 04/29/24 11:03) Rash/Hives Lisinopril Allergy (Mild, Uncoded 04/29/24 11:03) Difficulty Breathing Morphine Allergy (Mild, Uncoded 04/29/24 11:03) Bad Sleep Apnea Shellfish Allergy (Mild, Uncoded 04/29/24 11:03) Vomiting and Hives Sulfa Drugs Allergy (Mild, Uncoded 04/29/24 11:03) Rash/Hives HPI Comments Details: The patient is a 64-year-old woman known complex sleep apnea in addition to uncontrolled hypertension. She has failed CPAP in the past. She has been having hard time controlling her blood pressure at this time. She does use oxygen at nighttime. The oxygen therapy has been affecting beneficial. However, for the last 8 months or so she has been developing progressive shortness of breath. She gets short of breath even minimal activity. Moderate severity. Does get better with rest. She has also noticed that she has had increased weight gain. She has also feels swollen. She does complains of chest tightness. Denies any wheezing or coughing at this time. She is overly tired. She is staying busy doing work and not been able to get adequate sleep. She is also concerned that recently her got laid off. She does have a history of pulmonary nodules. The suspicion is that she had also enlarged salivary glands. We were evaluating her for potential diagnosis of sarcoidosis. However, the workup was not completed. She also had a CT scan of the chest that was personally reviewed by me. She has numerous pulmonary nodules although small. Some indeed a calcified consistent with granulomas. Indeed there may be evidence of sarcoidosis but no evidence of any end-organ disease or need for therapy at this time. We talked about the importance of her sleep apnea. She does have a complex sleep apnea. She will have a sleep study coming up on Saturday. She does have significant sleep apnea. She failed CPAP in the past and she is claustrophobic and is get about starting CPAP at this time. She thinks that the CPAP will make her worse altogether. Therefore the only other option is for her to consider an oral appliance. 09/07/2021 the patient has a telephone visit today. She has become significantly worse. she has been using the oxygen now continue sleep because of worsening shortness of breath. Usually at 2 L. she also has significant daytime drowsiness with an Ashton score of 16/24. The patient did have a split study recently which we personally reviewed. The patient does have severe sleep apnea. She was titrated on CPAP which she did have a hard time. The recommendation was for her to start CPAP therapy at a low pressure in order for her to be able to tolerated. In addition to that she was very hypoxemic and she will need oxygen as well along with her APAP therapy. I did reach out to the local DME company, [employer]. the patient needs to be started on APAP ONI. She also needs a lot of encouragement and guidance. She is reluctant to use a sleep aid because of her severe disease and bad outcomes in the past. But, she may be able to take something that will not affect her respiratory drive that will help her tolerate the PAP therapy. In the meantime she continues with current respiratory therapy. She also has been on diuretics. 10/06/2021 the patient is here for a pulmonary follow-up visit. We did review her severe split study during the last visit and I did request an urgent APAP. she has not received her machine as his yet. I did call the [employer] company and they did respond to me saying that they will be setting her up today or Next week. The patient will start using the machine. She will also bring it in to the next visit. I did provide her with a prescription of gabapentin. She has been concern of taking any medications because of her significant sleep apnea and previous occurrences when she took any sleep medication where she resulted in respiratory failure. I did reassure the patient that the gabapentin is a small does and should not create such a significant impact on her respiratory drive if anything. Still she will bring her machine and we can just make sure she is using it properly and she can try the medication while she is with this during that visit. in the meantime I did request a consultation with a sleep specialist at [facility]. The patient still waiting to hear back from that visit. She continues use her oxygen with good effect. The patient continues on her diuretics. 12/13/2021 the patient is here for a pulmonary follow-up visit. Overall the patient has multiple ailments. Recently she was diagnosed with diabetes and she is having hard time with that. She is waiting for non-insulin injectable medicine hopeful that will help her with her weight and also with her sugars. In the meantime she did start the CPAP. The CPAP therapy has been affecting beneficial she she seems to be tolerating after we adjusted the pressure is a little bit more. this is a significant improvement from her baseline. I am hopeful that she can continue using it nightly. I will request that she brings her CPAP into the next visit so we can download the data and further adjust the machine accordingly. In regards to the oxygen she continues use the oxygen at 3 L continues with activity and 2 L at rest. The therapy has been affecting beneficial. Her swelling has improved dramatically. I am hopeful that if she continues improving then we can have her try conserving device such she does not have to carries the larger oxygen canister. the patient continues to have shortness of breath and cough productive in nature. She is not able to take prednisone due to her other comorbidities. Daliresp will be an option for her. 01/16/2022 the patient is here for pulmonary follow-up visit. Overall the patient appears to be doing a little better. She still dealing with the elevated blood sugars. She was recently also referred to Nephrology for micro albuminuria. Renal function still normal. She is working closely with Nephrology. She has lost some weight which is reassuring. The patient also has been trying to use her CPAP. She has been using it not every day. She understands that she needs to use it more. She is going to start using during the daytime as well. The patient is reluctant to use a sleep aid because she is concerned that she is not going to wake up. Although I do believe a mild sleep aid may help her tolerate her CPAP better. During the visit we did undergo a 6 minutes walk test. The patient was able to maintain a pulse ox of 96% on 3 L pulse which is significantly better than she was before. The patient has significant elements she has a hard time caring her oxygen tanks. They do not provide a portability outside of the home. The patient needs a battery powered portable oxygen concentrator. I will request 1 from her [employer] company. 10/15/2022 The patient is here for a pulmonary follow up visit. She is no longer using the CPAP. She has tried and failed APAP multiple times. She was not a candidate for a hypoglossal nerve stimulator, and did not respond to Oral mandibular device. We briefly spoke about tracheostomy, but, I honestly feel that this will result in a worsening quality of life. If her condition were to worsen then we can further discuss that option. She does use the oxygen 17/12. She went back to the continuous oxygen since the POC was not enough. She developed severe abdominal pain and admitted to [facility] [place] briefly. She had a CT abdomen which I personally reviewed the lung cuts. It appears that se has new pulmonary nodules suggestive of bronchiolitis. Likely related to a viral syndrome. No evidence of pneumonia nor ILD. Clinically the patient feels better. She is not looking to have additional studies at this time. As long as she is not worsening we can get a repeat CT chest in 8-12 months. 06/13/2023 the patient is here for a pulmonary follow-up visit. Recently she did have COVID back actually the end of April. She then tested positive again. She had hard time getting rid of it. She finally was able to clear the COVID but he resulted in significant sinusitis. She went to her primary care doctor and she was given prednisone and also antibiotics. Although it only partially treated. Will go ahead and give her another course of antibiotics. Will hold the prednisone specially since she is already cushingoid. The patient also has been using the oxygen with good effect. She is working on weight loss. The patient still not using any APAP therapy. We did talk about other modalities such as a elastic mandibular device that may provides minimal relief but will provide some relief to treat her underlying sleep apnea. At this point any intervention will be helpful. The patient unfortunately did have an MRI done when she went to [facility] and she was found to have a new chronic lacunar infarct. This is not her 1st stroke. She understands that not using her CPAP, untreated sleep apnea can result in increased cerebrovascular disease. The patient does have significant chronic fatigue after having the COVID. She does not feel the same as she did prior to the COVID. Therefore, she will be a good candidate for Provigil that she can use a small dose in the morning to see if this provides better sleep-wake cycle. 10/23/2023 the patient is here for pulmonary follow-up visit. Overall the patient has been doing okay. She has been trying to work on weight loss. She has been using non-insulin injectables for diabetes although she has not seen significant weight loss. She is also using her oxygen with good effect. Lower extremity edema is okay. She has been working with elevated blood pressures. She did see Nephrology and her blood pressure is better controlled. Now she has been evaluated for other potential conditions which could be associated. Patient also continues with her underlying issues with sleep apnea. Although seems to be waking up okay. She never take the Provigil because she was concerned about the side effects. The patient does wake up at 06:00 o'clock in the morning is able to be effective during the daytime. So therefore this point seems like she does need Provigil. Still we talked about a mandibular device. The patient should be considering a oral mandibular device to help with snoring and help her with some degree of obstruction although we not cover or completely treat her sleep apnea and may partially helpful she will talk to the dentist soon about that. She continues to be on prednisone which is reassuring. We did look at a CT scan of the abdomen that she had back in 2022 demonstrating extensive reticular changes suggesting pulmonary fibrosis. Therefore will request a CT scan of the chest prior to her next visit. The patient should also be getting an echocardiogram specially with elevated blood pressure. And she has not had 1 by the time we see her next we will order 1. 05/09/2024 the patient is here for a pulmonary follow-up visit. The patient overall has been doing fair. Moreover the standpoint she seems to be stable using her oxygen. The oxygen therapy has been affecting beneficial. She does use it 24 hours a day. The patient did undergo a CT scan of the chest back in 02/14/2024 which I personally review with her. The patient does have some pulmonary nodules that appeared to be stable. In addition to that I do not appreciate any active sarcoidosis at this time and I do not see any active interstitial lung disease. Her pulmonary trunk is difficult to assess based on the fact that the CT scan does not have contrast. But it seems like the pulmonary trunk is not significantly dilated. The patient is having issues with sugars though her sugars are significantly high up to 400 at the time. She feels very fatigued. Explained to her that this is in part the fact that she is not treating her sleep apnea but also the fact that her sugars are still high. She needs to follow-up with Endocrinology. I did give him information in order for her to look into endocrinology this time. As we know the patient does have severe sleep apnea and she is reluctant to use CPAP therapy. The patient does have an elevated BMI and therefore I do not believe she would be a good candidate for an inspire device in addition to that her sugars are high she was she is high risk for any kind of surgical intervention. 10/30/2024 the patient is here for a pulmonary follow-up visit. Overall the patient continues to be able to same. Still complaining of dyspnea on exertion. Moderate severity. Does use the oxygen regularly. The patient is also having significant back pain now mainly the lower back in the mid lower back area. Moderate severity. It is also affecting her ability to get around breathe. Patient had a chest x-ray back in August demonstrating no acute disease. Previous CT scan was back in 2023. No additional CT scans required at this time. She continues use the respiratory inhalers with good response. She was supposed to start Daliresp because of her chronic bronchitis and to try to minimize any prednisone in view of her diabetes. She for some reason did not started therefore I will send that again. [facility] Medical History (Updated 11/01/24 @ 21:27 by Campos Jackson MD) Back pain Adjustment disorder Left ventricular hypertrophy Sarcoidosis Pulmonary nodules Pickwickian syndrome ABNER (obstructive sleep apnea) Chronic respiratory failure Chronic restrictive lung disease Asthma-COPD overlap syndrome Surgical History Hx of hysterectomy Hx of cholecystectomy Family History Father CVD (cardiovascular disease) Mother CVD (cardiovascular disease) Social History Patient Tobacco Use Status: Never used Tobacco Review of Systems Const Denies chills, Reports daytime sleepiness, Denies difficulty sleeping, Reports fatigue, Denies fever(s), Denies frequent falls, Reports headache(s), Reports snoring, Reports stops breathing during sleep, Denies weakness, Denies weight gain and Reports weight loss ENT Denies dizziness, Reports headache(s), Reports nasal congestion, Reports nasal discharge, Reports nasal obstruction, Reports sinus pain and Reports sinus pressure Card Denies chest pain, Denies leg edema, Denies lightheadedness, Denies palpitations, Denies dyspnea, Reports dyspnea on exertion, Reports orthopnea and Denies other (loss of consciousness) Resp Denies cough, Denies dyspnea, Reports dyspnea on exertion and Reports snoring GI Denies hematochezia and Denies change in stool character Musc Denies abnormal gait, Reports back pain, Denies muscle weakness, Denies numbness, Denies radiating pain into limb and Denies tingling Neuro Denies abnormal gait, Denies dizziness, Denies frequent falls, Reports headache(s), Denies numbness, Denies tingling and Denies weakness Endo Reports fatigue and Denies palpitations Physical Exam Vital Signs: Last Vital Signs Pulse 73 10/30/24 10:56 BP 134/74 10/30/24 10:56 Pulse Ox 98 10/30/24 10:56 Oxygen Delivery Method Nasal Cannula 10/30/24 10:56 Oxygen Flow Rate 3 10/30/24 10:56 BMI result Body Mass Index 34.7 Const General: alert Orientation/consciousness: patient oriented x3 HEENT General nose exam: Abnormal external nose present and Nasal discharge present Neck Neck: Yes supple Chest Chest palpation & inspection: normal inspection of the chest Resp Effort & Inspection: normal respiratory effort Auscultation: no wheezes and diminished lung sounds Cardio Rate: regular rate Rhythm: regular rhythm Heart sounds: S1 normal heart sound present, S2 normal heart sound present and normal S1 and S2 GI Palpation (GI): Soft to palpation and nontender Auscultation: normal bowel sounds Skin General skin exam: rashes and/or lesions noted Neuro General: patient oriented x3 Extrem General: No clubbing, No cyanosis and No edema Psych Appearance: well kempt Affect: Sad affect present Assessment & Plan Assessment & Plan (1) ABNER (obstructive sleep apnea): Code(s): G47.33 - Obstructive sleep apnea (adult) (pediatric) Category: Medical (2) Sarcoidosis: Comment: currently not active Code(s): D86.9 - Sarcoidosis, unspecified Category: Medical (3) Pulmonary nodules: Code(s): R91.8 - Other nonspecific abnormal finding of lung field Category: Medical (4) SOB (shortness of breath) on exertion: Code(s): R06.02 - Shortness of breath Category: Medical (5) Pickwickian syndrome: Code(s): E66.2 - Morbid (severe) obesity with alveolar hypoventilation Category: Medical (6) Chronic respiratory failure: Comment: RUN: 10/08/212205 PAGE 1 [facility] [address] [place] [id number] Computed Tomography Technician: Vladimir Torre M.D. Specimen Inquiry Name: Tricia Golden Age/Sex: 60/F : 1960 Unit#: [id number] Attend Dr: Campos Jackson MD Re01/24/21 Status: DEP REF Location: [facility] Disch: SPEC : [id number] DEON: 01/24/21 STATUS: COMP REQ : [id number] RECD: 01/24/[address]: Campos Jackson MD COMP: 01/24/21 ENTERED: 01/24/[address]: JORGE LUIS GALARZA MD ORDERED: ABG - POC COMMENTS: TESTED ON [id number] BY [id number] Test Result Flag Reference Site ABG pH 7.44 7.35-7.45 ABG pCO2 40 32-45 mmHg ABG pO2 68 L 83-108 mmHg ABG HCO3- 27 H 22-26 mmol/L ABG O2 % Sat. 92.0 % Code(s): J96.10 - Chronic respiratory failure, unspecified whether with hypoxia or hypercapnia Category: Medical Qualifiers: Respiratory failure complication: hypoxia Qualified Code(s): J96.11 - Chronic respiratory failure with hypoxia (7) Chronic restrictive lung disease: Code(s): J98.4 - Other disorders of lung Category: Medical (8) Asthma-COPD overlap syndrome: Code(s): J44.9 - Chronic obstructive pulmonary disease, unspecified Category: Medical (9) Back pain: Code(s): M54.9 - Dorsalgia, unspecified Category: Medical Qualifiers: Back pain location: low back pain Chronicity: unspecified Back pain laterality: unspecified Sciatica presence: without sciatica Qualified Code(s): M54.50 - Low back pain, unspecified Plan Continue Breztri NAM as needed oxygen supplementation 2-3L with activity and sleep. recommend oral mandibular device from dentist diuresis as tolerated start Daliresp back xray follow-up in 3-4 months Orders: Orders XR thoracic spine 3V 10/30/24 M54.9 - Dorsalgia, unspecified XR lumbar spine 2-3V 10/30/24 M54.9 - Dorsalgia, unspecified Medications: New roflumilast (Daliresp) 500 mcg PO DAILY 30 days 30 tabs 11RF Refilled albuterol sulfate 90 mcg/actuation 2 inhalations inhalation Q6H 30 days PRN 18 grams 12RF shortness of breath or wheezing J44.9 - Chronic obstructive pulmonary disease, unspecified [id number]-dnigerrn-zuhlhhzktu 160-9-4.8 mcg/actuation (Breztri Aerosphere) 2 inhalations inhalation BID 30 days 10.7 grams 11RF albuterol sulfate 2.5 mg (3 mL) inhalation BID 30 days 180 mL 11RF shortness of breath or wheezing J44.9 - Chronic obstructive pulmonary disease, unspecified Coding Level of Care Code Est Pt Level 4 (11955) Complex EM visit Add On G2211 Diagnoses ABNER (obstructive sleep apnea) G47.33 Sarcoidosis D86.9 Pulmonary nodules R91.8 SOB (shortness of breath) on exertion R06.02 Pickwickian syndrome E66.2 Chronic respiratory failure with hypoxia J96.11 Respiratory failure complication: hypoxia Chronic restrictive lung disease J98.4 Asthma-COPD overlap syndrome J44.9 Low back pain without sciatica, unspecified back pain laterality, unspecified chronicity M54.50 Back pain location: low back pain Chronicity: unspecified Back pain laterality: unspecified Sciatica presence: without sciatica Time Spent (min) 18
--- OUTSIDE RECORDS SUMMARY | 2024-10-30 11:46 | XMS_ITS | Patient Health Record ---
Author Organization [facility] Address [address] [place] [address] Support Name Relationship Address Phone Tricia Golden Guarantor Unknown Allergies Allergen (clinical drug ingredient) Drug/Non Drug [...] Status W/U Status Risk Notes Problem Sarcoidosis (99526091) Sarcoidosis, unspecified (D86.9) Active confirmed Problem Hypothyroidism (15412867) Hypothyroidism, unspecified (E03.9) Active confirmed Problem Epileptic seizures related to external causes, not intractable, without status epilepticus (G40.509) Active confirmed Problem Transient ischemic attack (297911398) Other transient cerebral ischemic attacks and related syndromes (G45.8) Active confirmed Problem Obstructive sleep apnea syndrome (disorder) (54791605) Obstructive sleep apnea (adult) (pediatric) (G47.33) Active confirmed Problem Uncomplicated mild persistent asthma (321231023) Mild persistent asthma, uncomplicated (J45.30) Active confirmed Problem Gastro-esophageal reflux disease without esophagitis (875716806) Gastro-esophagea l reflux disease without esophagitis (K21.9) Active confirmed Problem Body mass index 35.00 to 39.99 (662107611366651) Body mass index (BMI) 38.0-38.9, adult (Z68.38) Active confirmed Problem Essential hypertension (19653456) Essential (primary) hypertension (I10) Active confirmed Problem Body mass index 30+ - obesity (finding) (343346572) Body mass index [BMI] 60.0-69.9, adult (Z68.44) Active confirmed Plan Of Treatment No Information Insurance Providers Payer Name Payer Address Payer Phone Subscriber Number Group Number Insured Name Patient Relationship to Insured Coverage Start Date Coverage End Date [facility] [address] [place] [phone] [id number] Tricia Golden Self - patient is [...]
== END 2024-10-30 11:27 | disposition home or self-care (01) ==
LOC: HO.HPS 10:52
PROVIDERS: PCP Internal Medicine; Visit Provider Hospitalist
DX: G47.33 Obstructive sleep apnea (adult) (pediatric) (principal); D86.9 Sarcoidosis, unspecified; R91.8 Other nonspecific abnormal finding of lung field; R06.02 Shortness of breath; E66.2 Morbid (severe) obesity with alveolar hypoventilation; J96.11 Chronic respiratory failure with hypoxia; J98.4 Other disorders of lung; J44.9 Chronic obstructive pulmonary disease, unspecified; M54.50 Low back pain, unspecified
CPT/HCPCS: 99214; G2211

== ENCOUNTER → 2024-10-30 10:52 | Outpatient (BNVA) | payer MEDICARE, SELFPAY | PROVIDERS: PCP Internal Medicine; Visit Provider Hospitalist | DX: G47.33 Obstructive sleep apnea (adult) (pediatric) (principal); D86.9 Sarcoidosis, unspecified; R91.8 Other nonspecific abnormal finding of lung field; J96.11 Chronic respiratory failure with hypoxia; J98.4 Other disorders of lung; J44.9 Chronic obstructive pulmonary disease, unspecified; M54.50 Low back pain, unspecified | CPT/HCPCS: 99212 ==

== ENCOUNTER 2024-11-19 10:02 | Outpatient (REF) | payer BC, SELFPAY ==
--- NOTE | ~2024-11-19 | XR_ITS ---
EXAMINATION: XR THORACIC SPINE CLINICAL INFORMATION: M54.9 - Dorsalgia, unspecified COMPARISON: None available. TECHNIQUE: 3 views of the thoracic spine were obtained. FINDINGS: Clips in the right upper quadrant of the abdomen are likely related to prior cholecystectomy. There is mild loss of height at two vertebral bodies in the upper thoracic spine approximately T4 and T6, likely representing compression fractures. Vertebral body height and alignment is preserved otherwise. XR/XR thoracic spine 3V IMPRESSION: Suspected age-indeterminate compression fractures of approximately T4 and T6 vertebral body. Electronically signed by: Jae Miller MD 11/19/2024 11:39 AM EDT
--- NOTE | ~2024-11-19 | XR_ITS ---
EXAMINATION: XR LUMBAR SPINE 2-3 VIEWS HISTORY: M54.9 - Dorsalgia, unspecified COMPARISON: There are no prior studies for comparison. FINDINGS: AP, lateral, and coned down views of the lumbar spine are submitted. The bones are osteopenic. Five nonrib-bearing lumbar vertebral bodies are identified, maintaining normal height and alignment without evidence of fracture or spondylolisthesis. The intervertebral disc spaces are preserved. The posterior elements are intact. There is calcification of the abdominal aorta. There are surgical clips in the pelvis. XR/XR lumbar spine 2-3V IMPRESSION: Osteopenia. Otherwise unremarkable examination of the lumbar spine. Electronically signed by: Garry Godinez MD 11/19/2024 11:38 AM EDT
--- OUTSIDE RECORDS SUMMARY | 2024-11-19 11:31 | XMS_ITS | Patient Health Record ---
Author Organization [facility] Address [address] [place] [address] Support Name Relationship Address Phone Tricia Golden [...] Status W/U Status Risk Notes Problem Sarcoidosis (36912022) Sarcoidosis, unspecified (D86.9) Active confirmed Problem Hypothyroidism (56209836) Hypothyroidism, unspecified (E03.9) Active confirmed Problem Epileptic seizures related to external causes, not intractable, without status epilepticus (G40.509) Active confirmed Problem Transient ischemic attack (449348226) Other transient cerebral ischemic attacks and related syndromes (G45.8) Active confirmed Problem Obstructive sleep apnea syndrome (disorder) (27585358) Obstructive sleep apnea (adult) (pediatric) (G47.33) Active confirmed Problem Uncomplicated mild persistent asthma (783265488) Mild persistent asthma, uncomplicated (J45.30) Active confirmed Problem Gastro-esophageal reflux disease without esophagitis (688824527) Gastro-esophagea l reflux disease without esophagitis (K21.9) Active confirmed Problem Body mass index 35.00 to 39.99 (839945418392875) Body mass index (BMI) 38.0-38.9, adult (Z68.38) Active confirmed Problem Essential hypertension (35661784) Essential (primary) hypertension (I10) Active confirmed Problem Body mass index 30+ - obesity (finding) (870562597) Body mass index [BMI] 60.0-69.9, adult (Z68.44) Active confirmed Plan Of Treatment No Information Insurance Providers Payer Name Payer Address Payer Phone Subscriber Number Group Number Insured Name Patient Relationship to Insured Coverage Start Date Coverage End Date [facility] [address] [place] [phone] [id number] Tricia Golden Self - patient is [...]
== END 2024-11-19 10:03 | disposition home or self-care (01) ==
LOC: HO.XRAY 10:02
PROVIDERS: PCP Internal Medicine; Visit Provider Hospitalist
DX: M54.9 Dorsalgia, unspecified (principal)
CPT/HCPCS: 72072; 72100

== ENCOUNTER → 2024-11-19 10:07 | Outpatient (BNV) | payer BC, SELFPAY | PROVIDERS: PCP Internal Medicine; Visit Provider Radiology Diagnostic Radiology | DX: M54.9 Dorsalgia, unspecified (principal); M85.80 Other specified disorders of bone density and structure, unspecified site | CPT/HCPCS: 72100 ==

== ENCOUNTER 2025-04-16 11:00 | Outpatient (AMB) | payer MEDICARE, SELFPAY ==
[2025-04-16 11:13] VITALS: BP 110/72; PULSE 78; O2SAT 97; BMI 34.1
--- NOTE | 2025-04-16 11:13 | MHC.OFFVIS ---
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: No Accompanied by: Self / Same As Patient Allergies MIREILLE Inhibitors Allergy (Mild, Uncoded 04/29/24 11:03) Difficulty Breathing Amoxicillin Allergy (Mild, Uncoded 04/29/24 11:03) Difficulty Breathing Iodine Allergy (Mild, Uncoded 04/29/24 11:03) Rash/Hives Lisinopril Allergy (Mild, Uncoded 04/29/24 11:03) Difficulty Breathing Morphine Allergy (Mild, Uncoded 04/29/24 11:03) Bad Sleep Apnea Shellfish Allergy (Mild, Uncoded 04/29/24 11:03) Vomiting and Hives Sulfa Drugs Allergy (Mild, Uncoded 04/29/24 11:03) Rash/Hives HPI Comments Details: The patient is a 64-year-old woman known complex sleep apnea in addition to uncontrolled hypertension. She has failed CPAP in the past. She has been having hard time controlling her blood pressure at this time. She does use oxygen at nighttime. The oxygen therapy has been affecting beneficial. However, for the last 8 months or so she has been developing progressive shortness of breath. She gets short of breath even minimal activity. Moderate severity. Does get better with rest. She has also noticed that she has had increased weight gain. She has also feels swollen. She does complains of chest tightness. Denies any wheezing or coughing at this time. She is overly tired. She is staying busy doing work and not been able to get adequate sleep. She is also concerned that recently her got laid off. She does have a history of pulmonary nodules. The suspicion is that she had also enlarged salivary glands. We were evaluating her for potential diagnosis of sarcoidosis. However, the workup was not completed. She also had a CT scan of the chest that was personally reviewed by me. She has numerous pulmonary nodules although small. Some indeed a calcified consistent with granulomas. Indeed there may be evidence of sarcoidosis but no evidence of any end-organ disease or need for therapy at this time. We talked about the importance of her sleep apnea. She does have a complex sleep apnea. She will have a sleep study coming up on Saturday. She does have significant sleep apnea. She failed CPAP in the past and she is claustrophobic and is get about starting CPAP at this time. She thinks that the CPAP will make her worse altogether. Therefore the only other option is for her to consider an oral appliance. 09/07/2021 the patient has a telephone visit today. She has become significantly worse. she has been using the oxygen now continue sleep because of worsening shortness of breath. Usually at 2 L. she also has significant daytime drowsiness with an [place] score of 16/24. The patient did have a split study recently which we personally reviewed. The patient does have severe sleep apnea. She was titrated on CPAP which she did have a hard time. The recommendation was for her to start CPAP therapy at a low pressure in order for her to be able to tolerated. In addition to that she was very hypoxemic and she will need oxygen as well along with her APAP therapy. I did reach out to the local DME company, [email or web address]. the patient needs to be started on APAP ONI. She also needs a lot of encouragement and guidance. She is reluctant to use a sleep aid because of her severe disease and bad outcomes in the past. But, she may be able to take something that will not affect her respiratory drive that will help her tolerate the PAP therapy. In the meantime she continues with current respiratory therapy. She also has been on diuretics. 10/06/2021 the patient is here for a pulmonary follow-up visit. We did review her severe split study during the last visit and I did request an urgent APAP. she has not received her machine as his yet. I did call the [email or web address] company and they did respond to me saying that they will be setting her up today or Next week. The patient will start using the machine. She will also bring it in to the next visit. I did provide her with a prescription of gabapentin. She has been concern of taking any medications because of her significant sleep apnea and previous occurrences when she took any sleep medication where she resulted in respiratory failure. I did reassure the patient that the gabapentin is a small does and should not create such a significant impact on her respiratory drive if anything. Still she will bring her machine and we can just make sure she is using it properly and she can try the medication while she is with this during that visit. in the meantime I did request a consultation with a sleep specialist at [facility]. The patient still waiting to hear back from that visit. She continues use her oxygen with good effect. The patient continues on her diuretics. 12/13/2021 the patient is here for a pulmonary follow-up visit. Overall the patient has multiple ailments. Recently she was diagnosed with diabetes and she is having hard time with that. She is waiting for non-insulin injectable medicine hopeful that will help her with her weight and also with her sugars. In the meantime she did start the CPAP. The CPAP therapy has been affecting beneficial she she seems to be tolerating after we adjusted the pressure is a little bit more. this is a significant improvement from her baseline. I am hopeful that she can continue using it nightly. I will request that she brings her CPAP into the next visit so we can download the data and further adjust the machine accordingly. In regards to the oxygen she continues use the oxygen at 3 L continues with activity and 2 L at rest. The therapy has been affecting beneficial. Her swelling has improved dramatically. I am hopeful that if she continues improving then we can have her try conserving device such she does not have to carries the larger oxygen canister. the patient continues to have shortness of breath and cough productive in nature. She is not able to take prednisone due to her other comorbidities. Daliresp will be an option for her. 01/16/2022 the patient is here for pulmonary follow-up visit. Overall the patient appears to be doing a little better. She still dealing with the elevated blood sugars. She was recently also referred to Nephrology for micro albuminuria. Renal function still normal. She is working closely with Nephrology. She has lost some weight which is reassuring. The patient also has been trying to use her CPAP. She has been using it not every day. She understands that she needs to use it more. She is going to start using during the daytime as well. The patient is reluctant to use a sleep aid because she is concerned that she is not going to wake up. Although I do believe a mild sleep aid may help her tolerate her CPAP better. During the visit we did undergo a 6 minutes walk test. The patient was able to maintain a pulse ox of 96% on 3 L pulse which is significantly better than she was before. The patient has significant elements she has a hard time caring her oxygen tanks. They do not provide a portability outside of the home. The patient needs a battery powered portable oxygen concentrator. I will request 1 from her [email or web address] company. 10/15/2022 The patient is here for a pulmonary follow up visit. She is no longer using the CPAP. She has tried and failed APAP multiple times. She was not a candidate for a hypoglossal nerve stimulator, and did not respond to Oral mandibular device. We briefly spoke about tracheostomy, but, I honestly feel that this will result in a worsening quality of life. If her condition were to worsen then we can further discuss that option. She does use the oxygen 17/12. She went back to the continuous oxygen since the POC was not enough. She developed severe abdominal pain and admitted to [facility] [place] briefly. She had a CT abdomen which I personally reviewed the lung cuts. It appears that se has new pulmonary nodules suggestive of bronchiolitis. Likely related to a viral syndrome. No evidence of pneumonia nor ILD. Clinically the patient feels better. She is not looking to have additional studies at this time. As long as she is not worsening we can get a repeat CT chest in 8-12 months. 06/13/2023 the patient is here for a pulmonary follow-up visit. Recently she did have COVID back actually the end of April. She then tested positive again. She had hard time getting rid of it. She finally was able to clear the COVID but he resulted in significant sinusitis. She went to her primary care doctor and she was given prednisone and also antibiotics. Although it only partially treated. Will go ahead and give her another course of antibiotics. Will hold the prednisone specially since she is already cushingoid. The patient also has been using the oxygen with good effect. She is working on weight loss. The patient still not using any APAP therapy. We did talk about other modalities such as a elastic mandibular device that may provides minimal relief but will provide some relief to treat her underlying sleep apnea. At this point any intervention will be helpful. The patient unfortunately did have an MRI done when she went to [facility] and she was found to have a new chronic lacunar infarct. This is not her 1st stroke. She understands that not using her CPAP, untreated sleep apnea can result in increased cerebrovascular disease. The patient does have significant chronic fatigue after having the COVID. She does not feel the same as she did prior to the COVID. Therefore, she will be a good candidate for Provigil that she can use a small dose in the morning to see if this provides better sleep-wake cycle. 10/23/2023 the patient is here for pulmonary follow-up visit. Overall the patient has been doing okay. She has been trying to work on weight loss. She has been using non-insulin injectables for diabetes although she has not seen significant weight loss. She is also using her oxygen with good effect. Lower extremity edema is okay. She has been working with elevated blood pressures. She did see Nephrology and her blood pressure is better controlled. Now she has been evaluated for other potential conditions which could be associated. Patient also continues with her underlying issues with sleep apnea. Although seems to be waking up okay. She never take the Provigil because she was concerned about the side effects. The patient does wake up at 06:00 o'clock in the morning is able to be effective during the daytime. So therefore this point seems like she does need Provigil. Still we talked about a mandibular device. The patient should be considering a oral mandibular device to help with snoring and help her with some degree of obstruction although we not cover or completely treat her sleep apnea and may partially helpful she will talk to the dentist soon about that. She continues to be on prednisone which is reassuring. We did look at a CT scan of the abdomen that she had back in 2022 demonstrating extensive reticular changes suggesting pulmonary fibrosis. Therefore will request a CT scan of the chest prior to her next visit. The patient should also be getting an echocardiogram specially with elevated blood pressure. And she has not had 1 by the time we see her next we will order 1. 05/09/2024 the patient is here for a pulmonary follow-up visit. The patient overall has been doing fair. Moreover the standpoint she seems to be stable using her oxygen. The oxygen therapy has been affecting beneficial. She does use it 24 hours a day. The patient did undergo a CT scan of the chest back in 02/14/2024 which I personally review with her. The patient does have some pulmonary nodules that appeared to be stable. In addition to that I do not appreciate any active sarcoidosis at this time and I do not see any active interstitial lung disease. Her pulmonary trunk is difficult to assess based on the fact that the CT scan does not have contrast. But it seems like the pulmonary trunk is not significantly dilated. The patient is having issues with sugars though her sugars are significantly high up to 400 at the time. She feels very fatigued. Explained to her that this is in part the fact that she is not treating her sleep apnea but also the fact that her sugars are still high. She needs to follow-up with Endocrinology. I did give him information in order for her to look into endocrinology this time. As we know the patient does have severe sleep apnea and she is reluctant to use CPAP therapy. The patient does have an elevated BMI and therefore I do not believe she would be a good candidate for an inspire device in addition to that her sugars are high she was she is high risk for any kind of surgical intervention. 04/16/2025 the patient is here for a pulmonary follow-up visit. Overall the patient continues to be able to same. Still complaining of dyspnea on exertion. Moderate severity. Does use the oxygen regularly. The patient is also having significant back pain now mainly the lower back in the mid lower back area. Moderate severity. It is also affecting her ability to get around breathe. Patient had a chest x-ray back in August demonstrating no acute disease. Previous CT scan was back in 2023. She continues use the respiratory inhalers with good response. She was supposed to start Daliresp because of her chronic bronchitis and to try to minimize any prednisone in view of her diabetes. She for some reason did not started therefore I will send that again. COUNT INCLUDES THE [facility] Medical History (Updated 04/16/25 @ 11:36 by Campos Jackson MD) Chest pain Back pain Adjustment disorder Left ventricular hypertrophy Sarcoidosis Pulmonary nodules Pickwickian syndrome ABNER (obstructive sleep apnea) Chronic respiratory failure Chronic restrictive lung disease Asthma-COPD overlap syndrome Surgical History Hx of hysterectomy Hx of cholecystectomy Family History Father CVD (cardiovascular disease) Mother CVD (cardiovascular disease) Social History Patient Tobacco Use Status: Never used Tobacco Review of Systems Const Denies chills, Reports daytime sleepiness, Denies difficulty sleeping, Reports fatigue, Denies fever(s), Denies frequent falls, Reports headache(s), Reports snoring, Reports stops breathing during sleep, Denies weakness, Denies weight gain and Reports weight loss ENT Denies dizziness, Reports headache(s), Reports nasal congestion, Reports nasal discharge, Reports nasal obstruction, Reports sinus pain and Reports sinus pressure Card Denies chest pain, Denies leg edema, Denies lightheadedness, Denies palpitations, Denies dyspnea, Reports dyspnea on exertion, Reports orthopnea and Denies other (loss of consciousness) Resp Denies cough, Denies dyspnea, Reports dyspnea on exertion and Reports snoring GI Denies hematochezia and Denies change in stool character Musc Denies abnormal gait, Reports back pain, Denies muscle weakness, Denies numbness, Denies radiating pain into limb and Denies tingling Neuro Denies abnormal gait, Denies dizziness, Denies frequent falls, Reports headache(s), Denies numbness, Denies tingling and Denies weakness Endo Reports fatigue and Denies palpitations Physical Exam Vital Signs: Last Vital Signs Pulse 78 04/16/25 11:13 BP 110/72 04/16/25 11:13 Pulse Ox 97 04/16/25 11:13 Oxygen Delivery Method Room Air 04/16/25 11:13 BMI result Body Mass Index 34.1 Const General: alert Orientation/consciousness: patient oriented x3 HEENT General nose exam: Abnormal external nose present and Nasal discharge present Neck Neck: Yes supple Chest Chest palpation & inspection: normal inspection of the chest Resp Effort & Inspection: normal respiratory effort Auscultation: no wheezes and diminished lung sounds Cardio Rate: regular rate Rhythm: regular rhythm Heart sounds: S1 normal heart sound present, S2 normal heart sound present and normal S1 and S2 GI Palpation (GI): Soft to palpation and nontender Auscultation: normal bowel sounds Skin General skin exam: rashes and/or lesions noted Neuro General: patient oriented x3 Extrem General: No clubbing, No cyanosis and No edema Psych Appearance: well kempt Affect: Sad affect present Assessment & Plan Assessment & Plan (1) ABNER (obstructive sleep apnea): Code(s): G47.33 - Obstructive sleep apnea (adult) (pediatric) Category: Medical (2) Sarcoidosis: Comment: currently not active Code(s): D86.9 - Sarcoidosis, unspecified Category: Medical (3) Pulmonary nodules: Code(s): R91.8 - Other nonspecific abnormal finding of lung field Category: Medical (4) SOB (shortness of breath) on exertion: Code(s): R06.02 - Shortness of breath Category: Medical (5) Pickwickian syndrome: Code(s): E66.2 - Morbid (severe) obesity with alveolar hypoventilation Category: Medical (6) Chronic respiratory failure: Comment: RUN: 10/08/216 PAGE 1 [facility] [address] [place] [id number] Hotbed Transfer Operator: Vladimir Torre M.D. Specimen Inquiry Name: Tricia Golden Age/Sex: 60/F : 1960 Unit#: [id number] Attend Dr: Campos Jackson MD Re01/24/21 Status: DEP [facility] Disch: SPEC : [id number] DEON: 01/24/21 STATUS: COMP REQ : [id number] RECD: 01/24/[address]: Campos Jackson MD COMP: 01/24/21 ENTERED: 01/24/[address]: JORGE LUIS GALARZA MD ORDERED: ABG - POC COMMENTS: TESTED ON [id number] BY [id number] Test Result Flag Reference Site ABG pH 7.44 7.35-7.45 ABG pCO2 40 32-45 mmHg ABG pO2 68 L 83-108 mmHg ABG HCO3- 27 H 22-26 mmol/L ABG O2 % Sat. 92.0 % Code(s): J96.10 - Chronic respiratory failure, unspecified whether with hypoxia or hypercapnia Category: Medical Qualifiers: Respiratory failure complication: hypoxia Qualified Code(s): J96.11 - Chronic respiratory failure with hypoxia (7) Chronic restrictive lung disease: Code(s): J98.4 - Other disorders of lung Category: Medical (8) Asthma-COPD overlap syndrome: Code(s): J44.9 - Chronic obstructive pulmonary disease, unspecified Category: Medical (9) Back pain: Code(s): M54.9 - Dorsalgia, unspecified Category: Medical Qualifiers: Back pain laterality: unspecified Back pain location: low back pain Chronicity: unspecified Sciatica presence: without sciatica Qualified Code(s): M54.50 - Low back pain, unspecified (10) Chest pain: Code(s): R07.9 - Chest pain, unspecified Category: Medical Plan Continue Breztri NAM as needed oxygen supplementation 2-3L with activity and sleep. recommend oral mandibular device from dentist diuresis as tolerated Did not take Daliresp CT chest follow-up in 4-6 months Orders: Orders CT chest wo IV con 04/16/25 R07.9 - Chest pain, unspecified, R91.8 - Other nonspecific abnormal finding of lung field Coding Level of Care Code Complex visit Add On G2211 Diagnoses ABNER (obstructive sleep apnea) G47.33 Sarcoidosis D86.9 Pulmonary nodules R91.8 SOB (shortness of breath) on exertion R06.02 Pickwickian syndrome E66.2 Chronic respiratory failure with hypoxia J96.11 Respiratory failure complication: hypoxia Chronic restrictive lung disease J98.4 Asthma-COPD overlap syndrome J44.9 Low back pain without sciatica, unspecified back pain laterality, unspecified chronicity M54.50 Back pain laterality: unspecified Back pain location: low back pain Chronicity: unspecified Sciatica presence: without sciatica Chest pain R07.9 Time Spent (min) 17
--- OUTSIDE RECORDS SUMMARY | 2025-04-16 11:52 | XMS_ITS | Clinical Summary ---
Author Organization [facility] Address [address] [address] Phone Care Team Providers Care Fiber Optics Technician Name Role Phone Suman Ordonez MD Primary Care Provider [phone] Allergies Active Allergy Reactions Criticality Noted Date Comments Terry Inhibitors 07/05/2020 Amoxicillin Other (see comments) 07/05/2020 Ciprofloxacin 01/09/2021 Codeine 07/05/2020 Diltiazem Nausea Only 03/27/2017 Iodinated Contrast Media 07/05/2020 Iodine 01/09/2021 Lisinopril 07/05/2020 Morphine 07/05/2020 Nifedipine Other (see comments) High 07/25/2018 Oxycodone 07/05/2020 Shellfish Allergy 07/05/2020 Spironolactone Other (see comments) 07/05/2020 Sulfa Antibiotics 07/05/2020 Medications albuterol (2.5 MG/3ML) 0.083% nebulizer solution Take 2.5 mg by nebulization if needed Active cholecalciferol (VITAMIN D-3) 125 MCG (5000 UT) capsule Take 1 capsule by mouth 1 (one) time each day Active cyanocobalamin (VITAMIN B-12) 1000 MCG/ML injection Inject 1 mL under the skin every 30 (thirty) days Active esomeprazole (NexIUM) [address] capsule Take 1 capsule by mouth 2 (two) times a day Active levothyroxine (SYNTHROID, LEVOTHROID) 125 MCG tablet Take 1 tablet by mouth 1 (one) time each day Active sertraline (ZOLOFT) 100 MG tablet Take 0.5 tablets by mouth 1 (one) time each day Active Breztri Aerosphere 160-9-4.8 MCG/ACT aerosol 1 Active Magnesium 400 MG tablet Take by mouth Active aspirin (ST ERICKSON) 81 MG EC tablet Take 81 mg by mouth 1 (one) time each day Active cloNIDine (CATAPRES) 0.1 MG tablet Take 1 tablet (0.1 mg total) by mouth 2 (two) times a day if needed for high blood pressure (for Systolic BP > 180 mm hg) 5 Active Tirzepatide (Mounjaro) 10 MG/0.5ML solution auto-injector Inject under the skin Active cloNIDine (Uqbhfzyz-HQJ-6 ) 0.2 MG/24HR patch weekly Place 1 patch on the skin per week 13 patch 3 5 12/08/19 26 Active atenolol (Tenormin) 25 MG tablet Take 1 tablet (25 mg total) by mouth 1 (one) time each day 90 tablet 3 5 12/08/19 26 Active Active Problems Problem Noted Date Diagnosed Date Vitamin D deficiency, not otherwise specified Severe obesity 04/24/2023 04/24/2023 Multiple renal cysts 09/12/2022 Proteinuria 06/25/2022 Primary hypertriglyceridemia 06/19/2022 Epileptic seizure related to external cause, not intractable, without status epilepticus 06/19/2022 Body mass index (BMI) 60.0-69.9, adult 3 Proteinuria 01/10/2022 Sarcoidosis of lung 01/10/2022 Pernicious anemia 01/09/2021 Essential hypertension 07/05/2020 Dependence on supplemental oxygen 10/16/2017 04/24/2023 Overview (04/24/2023): HS Depressive disorder 10/16/2017 04/24/2023 Family history of transient ischemic attack 09/25 Overview (04/24/2023): 06/2012 2015 Hyperlipidemia 10/16/2017 04/24/2023 Hypothyroidism 10/16/2017 04/24/2023 Osteoporosis 10/16/2017 04/24/2023 Mediastinal lymphadenopathy 10/08/201703/28 Multiple nodules of lung 10/08/2017 023 Transient cerebral ischemia 04/24/200703/28 Resolved Problems Problem Noted Date Diagnosed Date Resolved Date Uncomplicated mild persistent asthma 06/19/2022 06/19/2022 Gastro-esophageal reflux dis ease without esophagitis 06/19/2022 06/19/2022 Sleep apnea 01/09/2021 2021 Migraine 01/09/2021 2021 Gilbert syndrome 01/09/2021 2021 Chronic obstructive pulmonary disease 01/09/2021 2021 Sarcoidosis 07/05/2020 2021 Localized enlarged lymph node 07/05/2020 2021 Immunizations Immunization Administration Dates Next Due Influenza Whole 02/25/2020, 9,02/27/2012,2010,03/14/2010,04/02/2007 Influenza, Quadrivalent, Pre servative Free 02/17/2020 Influenza, Unspecified 03/29/2022 Moderna SARS-COV-2 05/23/2021,08/04/2020, 021 Shingrix 04/15/2020,02/08/2018 Zoster 04/15/2020 Family History Medical History Relation Comments Hypertension Father Stroke Father Heart disease Mother myocardial infar ction Relation Status Comments Father Mother Social History Tobacco Use Types Packs/Day Years Used Date Smoking Tobacco: Former Smokeless Tobacco: Never Tobacco Cessation:Counseling Given: Not Answered Alcohol Use Standard Drinks/Week Comments No 0 (1 standard drink = 0.6 oz pur e alcohol) Comments Unknown Sex and Gender Information Value Date Recorded Sex Assigned at Not on file Legal Sex Female 5:23 PM EST Gender Identity Not on file Sexual Orientation Not on file Last Filed Vital Signs Vital Sign Reading Time Taken Comments Blood Pressure 108/72 12/07/2024 2:36 PM EDT Pulse 67 12/07/2024 2:36 PM EDT Temperature - - Respiratory Rate - - Oxygen Saturation 97% 07/06/2024 10:24 AM EST Inhaled Oxygen Concentration - - Weight 83.5 kg (184 lb) 12/07/2024 2:36 PM EDT Height 154.9 cm (5' 1 ) 10/17/2023 8:09 AM EDT Body Mass Index 34.77 10/17/2023 8:09 AM EDT Plan of Treatment Upcoming Encounters Date Type Department Care Team (Late st Contact Info) Description 06/07/2025 2:30 PM EST Office Visit [facility] [address] [phone] Dean Gomez MD [address] [phone] Health Maintenance Due Date Last Done Comments Breast Cancer Screening 1960 Pneumococcal Vaccine: 50+ Years (1 of 2 - PCV) 08/15/1979 Colorectal Cancer Screening: Annual FOBT 2009 Colorectal Cancer Screening: Colonoscopy 2009 Colorectal Cancer Screening: Sigmoidoscopy 2009 Influenza Vaccine (#1) 2025 3, 03/29/2022, 02/25/2020, Additional history exists Hepatitis B Vaccine Aged Out No longe r eligible based on patient's age to complete this topic Insurance [facility] Care Teams Fiber Optics Technician Relationship Specialty Start Date End Date Suman Ordonez MD [address] [place] [address] [address] [place], [place] PCP - General 06/06/20
--- OUTSIDE RECORDS SUMMARY | 2025-04-16 11:52 | XMS_ITS | Patient Health Record ---
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.8) Active confirmed Problem Obstructive sleep apnea syndrome (disorder) (01488189) Obstructive sleep apnea (adult) (pediatric) (G47.33) Active confirmed Problem Uncomplicated mild persistent asthma (678406594) Mild persistent asthma, uncomplicated (J45.30) Active confirmed Problem Gastro-esophageal reflux disease without esophagitis (553353113) Gastro-esophagea l reflux disease without esophagitis (K21.9) Active confirmed Problem Body mass index 35.00 to 39.99 (037994502712876) Body mass index (BMI) 38.0-38.9, adult (Z68.38) Active confirmed Problem Essential hypertension (59012373) Essential (primary) hypertension (I10) Active confirmed Problem Body mass index 30+ - obesity (finding) (076126175) Body mass index [BMI] 60.0-69.9, adult (Z68.44) Active confirmed Plan Of Treatment No Information Insurance Providers Payer Name Payer Address Payer Phone Subscriber Number Group Number Insured Name Patient Relationship to Insured Coverage Start Date Coverage End Date [facility] [address] [place] [phone] [id number] Tricia Golden Self - patient is [...]
--- OUTSIDE RECORDS SUMMARY | 2025-04-16 11:53 | XMS_ITS | Clinical Summary ---
Author Organization [facility] Address [address] [place] [phone] Phone Care Team Providers Care Portfolio Accountant Name Role Phone Pcp, Unknown Primary Care Provider Unavailabl e Social History Tobacco Use Types Packs/Day Years Used Date Smoking Tobacco: Never Assessed Education Answer Date Recorded Are you interested in more education? Not on myrna e 10/08/2022 Are you concerned about learning? Not on file 10/08/2022 No 10/08/2022 No 10/08/2022 Digital Access Answer Date Recorded No 10/21/2022 No 10/21/2022 No 10/21/2022 Reliable internet access at home? Not on file 10/21/2022 Device with a working camera? Not on file Comments Unknown Sex and Gender Information Value Date Recorded Sex Assigned at Not on file Legal Sex Female 6:42 PM EST Gender Identity Not on file Sexual Orientation Not on file Plan of Treatment Not on file Medical Devices Not on file Insurance [facility] PPO BLUE [place]OSS OUT OF STATE PPO BLUE [place] OUT OF STATE PPO BLUE [place] OUT OF STATE PPO BLUE [place] OUT OF [facility] PPO BLUE CROSS OUT OF STATE PPO BLUE [place] OUT OF STATE PPO BLUE [employer] OUT OF [facility] PPO BLUE CROSS OUT OF STATE PPO Care Teams Portfolio Accountant Relationship Specialty Start Date End Date Pcp, Unknown PCP - General 09/25/18 Additional Source Comments The information contained in this document represents components of the legal health record. It is not the complete legal health record.[facility]
== END 2025-04-16 11:43 | disposition home or self-care (01) ==
LOC: HO.HPS 11:01
PROVIDERS: PCP Internal Medicine; Visit Provider Hospitalist
DX: G47.33 Obstructive sleep apnea (adult) (pediatric) (principal); D86.9 Sarcoidosis, unspecified; R91.8 Other nonspecific abnormal finding of lung field; R06.02 Shortness of breath; E66.2 Morbid (severe) obesity with alveolar hypoventilation; J96.11 Chronic respiratory failure with hypoxia; J98.4 Other disorders of lung; J44.9 Chronic obstructive pulmonary disease, unspecified; M54.50 Low back pain, unspecified; R07.9 Chest pain, unspecified
CPT/HCPCS: 99213; G2211

== ENCOUNTER → 2025-04-16 11:00 | Outpatient (BNVA) | payer MEDICARE, SELFPAY | PROVIDERS: PCP Internal Medicine; Visit Provider Hospitalist | DX: E66.2 Morbid (severe) obesity with alveolar hypoventilation (principal); J44.9 Chronic obstructive pulmonary disease, unspecified; D86.9 Sarcoidosis, unspecified; R91.8 Other nonspecific abnormal finding of lung field; R06.02 Shortness of breath; J98.4 Other disorders of lung; M54.50 Low back pain, unspecified; R07.9 Chest pain, unspecified | CPT/HCPCS: 99212 ==